=== PATIENT | male | born 1965 | race Two or more races ===

== ENCOUNTER 2019-12-13 09:18 | Inpatient (IN) | payer BC ==
[~2019-12-13] VITALS: Ht 177.8 cm; Wt 60.5 kg
--- NOTE | 2019-12-13 09:18 | NUR ---
PT BIB RA 39 FROM A [facility]ARE [facility] FOR FEVER AND LOW O2S AT 80S ON RA, PT IS AAOX0, NOTED MILD DISTRESS, HOOKED TO O2 AT 3LPM VIA NC AND INSTRUMENT MAKER APPRENTICE, KEPT RESTED AND COMFORTABLE, WILL CONTINUE TO MONITOR.
--- NOTE | 2019-12-13 09:35 | NUR ---
SEEN AND EXAMINED BY .
--- NOTE | 2019-12-13 09:40 | NUR ---
PT IV LINE ESTABLISHED BLOOD DRAWN AND SENT TO LAB.
--- NOTE | 2019-12-13 09:50 | NUR ---
URINE SPECIMEN COLLECTED AND SENT TO LAB.
[2019-12-13 09:54] LABS: BASOPHILS # (AUTO) 0.1 /CMM (0.0-0.2); BASOPHILS % (AUTO) 0.5 % (0.0-2.0); EOSINOPHILS % (AUTO) 2.5 % (0.0-6.0); HEMATOCRIT 30 % (39-51); HEMOGLOBIN 9.2 g/dL (13.5-17.5); LYMPHOCYTES # (AUTO) 1.6 /CMM (0.8-4.8); LYMPHOCYTES % (AUTO) 7.7 % (20.0-44.0); MEAN CORPUSCULAR HGB CONC 31 g/dl (31.0-36.0); MEAN CORPUSCULAR VOLUME 79 fL (80-96); MONOCYTES # (AUTO) 0.9 /CMM (0.1-1.30); MONOCYTES % (AUTO) 4.1 % (2.0-12.0); NEUTROPHILS # (AUTO) 18.1 /CMM (1.8-8.9); NEUTROPHILS % (AUTO) 85.2 % (43.0-81.0); PLATELET COUNT (AUTO) 505 /CMM (150-450); RED BLOOD CELL COUNT(AUTO) 3.82 MIL/uL (4.5-6.0); WHITE BLOOD COUNT (AUTO) 21.2 K/uL (4.3-11.0)
--- NOTE | 2019-12-13 09:54 | NUR ---
SANDWICH AND DRINK CART OPERATOR AT BEDSIDE FOR XRAY.
--- NOTE | 2019-12-13 09:57 | NUR ---
COVID SWAB OBTAINED AND SENT TO LAB.
--- NOTE | 2019-12-13 10:00 | NUR ---
CALLED FOR TELE BED.
[2019-12-13 10:01] LABS: CALCIUM, SERUM 8.7 mg/dL (8.5-10.1); CARBON DIOXIDE 27 mmol/L (21-32); CHLORIDE 96 mmol/L (98-107); CREATININE 0.7 mg/dL (0.6-1.3); GLUCOSE 316 mg/dL (74-106); POTASSIUM 4.1 mmol/L (3.5-5.1); SODIUM SERUM 132 mmol/L (136-145); UREA NITROGEN, BLOOD 13 mg/dL (7-18)
[2019-12-13] MEDS ORDERED: ACETAMINOPHEN 650 MG/20.3 ML UDC ONE (10:01)
[2019-12-13 10:07] LABS: APPEARANCE,URINE Clear (CLEAR); BILIRUBIN,URINE Negative (NEGATIVE); BLOOD, URINE Trace-intact Ery/uL (NEGATIVE); COLOR,URINE Yellow (YELLOW); KETONES,URINE Negative (NEGATIVE); LEUKOCYTE ESTERASE ,URINE Trace (NEGATIVE); NITRITE, URINE Negative (NEGATIVE); PH,URINE 6.5 (5.0-8.0); PROTEIN,URINE 30 mg/dl (NEGATIVE); UGLUCOSE Negative (NEGATIVE)
[2019-12-13 10:13] LABS: BACTERIA,URINE Few /HPF (None Seen); SQUAMOUS EPITHELIAL CELL,UR Few /HPF (None Seen); WBC,URINE 0-2 /HPF (0-3)
[2019-12-13 10:14] LABS: ALANINE AMINOTRANSFERASE 18 U/L (12-78); ALBUMIN 1.7 g/dL (3.4-5.0); ALKALINE PHOSPHATASE 155 U/L (46-116); ASPARTATE AMINOTRANSFERASE 19 U/L (15-37); B-TYPE NATRIURETIC PEPTIDE 686 PG/ML (0-125); BILIRUBIN,DIRECT 0.1 mg/dL (0.0-0.2); BILIRUBIN,TOTAL 0.2 mg/dL (0.2-1.0); TOTAL PROTEIN, SERUM 8.1 g/dL (6.4-8.2)
--- NOTE | 2019-12-13 10:23 | NUR ---
SPOKED TO PT'S DAUGHTER BENIGNOCHARISMA LORIN FOR PT INFO
[2019-12-13] MEDS ORDERED: ACETAMINOPHEN 160 MG/5 ML PO ONE (10:30)
[2019-12-13] MEDS ORDERED: IV NS 0.9% 500 ML BAG IV ONE (11:00)
[2019-12-13] MEDS ORDERED: VANCOMYCIN HCL 1 GM in IV D5W 260 ML IV ONE (11:00)
[2019-12-13] MEDS ORDERED: PIPERACILLIN /TAZOBACTAM 3.375 G in IV D5W 50 ML IV ONE (11:00)
--- NOTE | 2019-12-13 11:14 | NUR ---
GOT BED 105
--- NOTE | 2019-12-13 11:17 | NUR ---
[facility] CALLED ITS DR. NAIK
--- NOTE | 2019-12-13 11:59 | NUR ---
CALLED [facility] PAGED DR BUTTERFIELD
--- NOTE | 2019-12-13 12:04 | NUR ---
DR.SAM AGRCIA AT BEDSIDE FOR EVAL.
[2019-12-13] MEDS ORDERED: NA P133E RC (12:36)
[2019-12-13] MEDS ORDERED: AMIO200T4 GT (12:36)
[2019-12-13] MEDS ORDERED: AMIN887L GT (12:36)
[2019-12-13] MEDS ORDERED: DOCU-141 GT (12:36)
[2019-12-13] MEDS ORDERED: TICA90TA GT (12:36)
[2019-12-13] MEDS ORDERED: NUT.250L18 (12:36)
[2019-12-13] MEDS ORDERED: ATOR40TA GT (12:36)
[2019-12-13] MEDS ORDERED: ACET325T53 GT (12:36)
[2019-12-13] MEDS ORDERED: IPRA3AMP23 IH (12:36)
[2019-12-13] MEDS ORDERED: INSU100I35 SQ (12:36)
[2019-12-13] MEDS ORDERED: INSU100V9 (12:36)
[2019-12-13] MEDS ORDERED: METO50TA16 GT (12:36)
[2019-12-13] MEDS ORDERED: NYST15PO4 TP (12:36)
[2019-12-13] MEDS ORDERED: METO-295 GT (12:36)
[2019-12-13] MEDS ORDERED: LOPE-195 GT (12:36)
[2019-12-13] MEDS ORDERED: BISA10SU11 RC (12:36)
[2019-12-13] MEDS ORDERED: SENN-175 GT (12:36)
[2019-12-13] MEDS ORDERED: FERR325T23 GT (12:36)
[2019-12-13] MEDS ORDERED: ASPI-1498 GT (12:36)
[2019-12-13] MEDS ORDERED: POLY10DR3 OP (12:36)
[2019-12-13] MEDS ORDERED: MAGN400O6 GT (12:36)
[2019-12-13 12:42] LABS: ABG BASE EXCESS 0.6 mmol/L; ABG OXYGEN SATURATION 96.8 % (92.0-98.5); ABG PCO2 33.1 mmHg (35.0-45.0); ABG PH 7.476 (7.350-7.450); ABG PO2 102.4 mmHg (75.0-100.0); AaDO2 115.9 mmHg; COHb 0.3 % (0.5-1.5); MetHb 0.4 % (0.0-1.5); O2Hb 96.1 % (94.0-97.0); SITE, ABG Right Brachial; VENT MODE, BG 4L NASAL CANULA
--- NOTE | 2019-12-13 12:45 | NUR ---
REPORT GIVEN TO ELAN FAITH FOR ADRIANA.
--- NOTE | 2019-12-13 13:15 | NUR ---
RN OPENING NOTES RECEIVED PATIENT FROM ER. PATIENT IS A/O X0, NONVERBAL. PATIENT IS ON 3L NC SATURATING AT 98%. VITAL SIGNS ARE STABLE. TEMP 97.4, BP 111/71, HR 101. PATIENT HAS MULTIPLE WOUNDS PRESENT, WOUNDS CHARTED AND PICTURES TAKEN AND PLACED IN THE CHART. SEIZURE PRECAUTIONS ARE IN PLACE. PATIENT IS NPO. IV STARTED ON RIGHT HAND 20 GAUGE, INTACT, PATENT AND FLUSHED WELL. PATIENT SAFETY IS MAINTAINED, CALL LIGHT WITHIN REACH, WILL CONTINUE TO MONITOR CLOSELY.
--- NOTE | 2019-12-13 14:19 | NUR ---
DR. HERNANDEZ NOTIFIED REGARDDING ADISSION ORDERS.
[2019-12-13] MEDS ORDERED: DEXTROSE 50%-WATER 50 ML DISP.SYRIN IV PRN (14:30)
[2019-12-13] MEDS ORDERED: IPRATROPIUM NEB FS 0.5 MG/2.5 ML AMPUL.NEB NEB PRN (14:30)
[2019-12-13] MEDS ORDERED: ONDANSETRON HCL/PF 4 MG/2 ML VIAL IVP PRN (14:30)
[2019-12-13] MEDS ORDERED: ALBUTEROL FS 2.5 MG/0.5 ML VIAL.NEB NEB PRN (14:30)
[2019-12-13] MEDS ORDERED: GLUCERNA 1.2 1,000 ML BOTTLE NG PRN (14:30)
[2019-12-13] MEDS ORDERED: Z GUARD REMEDY 2 OZ OINT TP PRN (14:30)
[2019-12-13] MEDS ORDERED: ENOXAPARIN SODIUM 40 MG/0.4 ML DISP.SYRIN SQ SCH (15:00)
[2019-12-13] MEDS ORDERED: IPRATROPIUM BROMIDE 14 GM INHALER (or 12.9 GM) IH PRN (15:30)
[2019-12-13] MEDS ORDERED: ALBUTEROL SULFATE INH 18 GM HFA.AER.AD IH PRN (15:30)
[2019-12-13] MEDS: IV NS 0.9% 1,000 ML IV PRN (15:37)
[2019-12-13] MEDS ORDERED: FEE PK DOSING 1 MIN EA MC ONE (15:40)
[2019-12-13 16:00] VITALS: BP 100/61
[2019-12-13] MEDS: TICAGRELOR 90 MG TABLET PO SCH (16:18)
--- NOTE | 2019-12-13 17:30 | NUR ---
RN NOTE PATIENT BLOOD SUGAR IS 311, SPOKE WITH CHARGE NURSE OK TO GIVE INSULIN EVEN THOUGH THE PATIENT IS NPO. ADMINISTERED INSULIN ORDERED. WILL MONITOR CLOSELY.
[2019-12-13] MEDS: PIPERACILLIN /TAZOBACTAM 3.375 G in IV D5W 50 ML IV SCH ×2 (17:35→23:46)
[2019-12-13] MEDS: BLOOD SUGAR DIAGNOSTIC 1 EACH STRIP IN SCH ×2 (17:37→23:45)
[2019-12-13] MEDS: INSULIN REGULAR, HUMAN 100 UNIT/ML 3 ML VIAL SQ PRN (18:02)
--- NOTE | 2019-12-13 19:32 | NUR ---
RN CLOSING NOTES NO ACUTE CHANGES TO PATIENT CONDITION DURING MY SHIFT. ALL PATIENT NEEDS MET. SAFETY WAS MAINTAINED, CALL LIGHT WITHIN REACH, ENDORSED TO PM NURSE FOR CONTINUITY OF CARE.
--- NOTE | 2019-12-13 19:45 | NUR ---
ASSORTER LAUNDRY OPENING NOTES: RECEIVED PT A/OX0 BED RESTING COMFORTABLY. PATIENT IN NO S/SX OF ACUTE DISTRESS AT THIS TIME. NO SOB NOTED. PATIENT'S BREATHING IS EVEN AND UNLABORED. PATIENT IS ON 3 L OF OXYGEN VIA NC; TOLERATING WELL. PATIENT ON TELE MONITORING READING HR IS @103. NOTED IV SITE ON R HAND ; GAUGE 20; PATENT IN INTACT,NO S/S OF INFECTION OR INFILTRATION. DEVLIN CATH IN PLACE, MODERATE OUTPUT NOTED. SAFETY MEASURES HAVE BEEN PROVIDED AND IMPLEMENTED. PATIENT BED ALARM IS ON. HEAD OF BED ELEVATED. BED IS LOCKED, IN LOWEST POSITION AND SIDE RAILS UP. CALL LIGHT WITHIN REACH OF THE PATIENT. WILL CONTINUE TO MONITOR AND REASSESS FOR ANY CHANGES.
[2019-12-13 20:00] VITALS: BP 106/65
[2019-12-13] MEDS: NYSTATIN TOP POWDER 15 GM BOTTLE TP SCH (21:22)
[2019-12-13] MEDS: ATORVASTATIN 40 MG TABLET GT SCH (21:49)
[2019-12-13] MEDS: VANCOMYCIN 1 GM in IV D5W 250 ML IV SCH (22:16)
[2019-12-14] VITALS (8 sets, daily range): BP systolic 107–115; BP diastolic 61–71
[2019-12-14] MEDS: INSULIN REGULAR, HUMAN 100 UNIT/ML 3 ML VIAL SQ PRN ×4 (00:02→17:10)
[2019-12-14] MEDS: PIPERACILLIN /TAZOBACTAM 3.375 G in IV D5W 50 ML IV SCH ×3 (05:06→18:23)
[2019-12-14] MEDS: BLOOD SUGAR DIAGNOSTIC 1 EACH STRIP IN SCH ×3 (05:27→17:08)
[2019-12-14 06:13] LABS: BASOPHILS % (AUTO) 0.2 % (0.0-2.0); EOSINOPHILS % (AUTO) 3.9 % (0.0-6.0); HEMATOCRIT 26 % (39-51); HEMOGLOBIN 8.3 g/dL (13.5-17.5); LYMPHOCYTES # (AUTO) 1.4 /CMM (0.8-4.8); LYMPHOCYTES % (AUTO) 7.9 % (20.0-44.0); MEAN CORPUSCULAR HGB CONC 31 g/dl (31.0-36.0); MEAN CORPUSCULAR VOLUME 78 fL (80-96); MONOCYTES # (AUTO) 1.1 /CMM (0.1-1.30); MONOCYTES % (AUTO) 5.8 % (2.0-12.0); NEUTROPHILS # (AUTO) 14.8 /CMM (1.8-8.9); NEUTROPHILS % (AUTO) 82.2 % (43.0-81.0); PLATELET COUNT (AUTO) 463 /CMM (150-450); RED BLOOD CELL COUNT(AUTO) 3.39 MIL/uL (4.5-6.0)
[2019-12-14 06:44] LABS: CALCIUM, SERUM 8.2 mg/dL (8.5-10.1); CREATININE 0.5 mg/dL (0.6-1.3); MAGNESIUM 1.6 mg/dL (1.8-2.4); PHOSPHORUS 3.3 mg/dL (2.5-4.9); POTASSIUM 3.7 mmol/L (3.5-5.1)
[2019-12-14 06:46] LABS: THYROID STIMULATING HORMONE 2.13 uIU/mL (0.358-3.74)
--- NOTE | 2019-12-14 06:53 | NUR ---
CARTOGRAPHIC DESIGNER - CLOSING NOTES PATIENT IN BED RESTING COMFORTABLY. PATIENT IN NO ACUTE DISTRESS. NO SOB NOTED, PT BREATHING IS EVEN AND UNLABORED. PT BREATHING ON OXYGEN 3L VIA NC SATURATING > 95% SP02. PATIENT ON TELE MONITORING READING SINUS TACHY HR IS @105. PATIENT IS CLEAN , DRY AND COMFORTABLE THROUGHOUT THE SHIFT. NEEDS AND CONCERNS ADDRESSED. SAFETY MEASURES INPLACED. PATIENT BED IS LOCKED AND IN LOWEST POSITION. SIDE RAILS UP. CALL LIGHT WITHIN REACH OF THE PATIENT. WILL ENDORSE TO AM SHIFT FOR ADRIANA.
--- NOTE | 2019-12-14 07:29 | NUR ---
RN OPENING NOTES RECEIVED PATIENT SLEEPING IN BED COMFORTABLY, NO S/SX OF DISTRESS. PT IS NON-VERBAL, AOX0, AND BEDBOUND. HE IS ON 3L OF OXYGEN VIA NC, TOLERATING WELL. TELE MONITOR SHOWING SR ST. DEVLIN CATH IS PATENT AND INTACT, DRAINING CLOUDY YELLOW URINE BY GRAVITY. MULTIPLE SKIN ISSUES PRESENT, WOUND CONSULT IS PENDING. GTUBE IS CLAMPED. IV SITE ON R HAND 20 G IS PATENT AND INTACT, INFUSING NS AT 100 ML/HR. SAFETY MEASURES HAVE BEEN IMPLEMENTED, CALL LIGHT IS WITHIN REACH, BED IS IN LOWEST AND LOCKED POSITION, SIDE RAILS UP X2, WILL CONTINUE TO MONITOR FOR ANY CHANGES.
[2019-12-14] MEDS: FERROUS SULFATE (325 MG) 325 MG/TAB TABLET GT SCH (08:13)
[2019-12-14] MEDS: AMIODARONE HCL 200 MG TABLET GT SCH (08:15)
[2019-12-14] MEDS: TICAGRELOR 90 MG TABLET PO SCH ×2 (08:15→17:08)
[2019-12-14] MEDS: PANTOPRAZOLE 40 MG VIAL IV SCH (08:15)
[2019-12-14] MEDS: ASPIRIN EC 81 MG TABLET.DR PO SCH (08:15)
[2019-12-14] MEDS: NYSTATIN TOP POWDER 15 GM BOTTLE TP SCH ×2 (08:16→21:27)
--- NOTE | 2019-12-14 08:35 | NUR ---
WOUND CARE CONSULT: REVIEWED CHART, NURSING DOCUMENTATION AND ADMISSION PHOTOS WHICH SHOW MULTIPLE WOUNDS INCLUDING UNSTAGEABLE SACRAL AND RT ELBOW WOUNDS, BILATERAL ANKLE WOUNDS, INTACT DEEP TISSUE INJURY TO BACK, RT EAR INTACT DTI/DISCOLORATION, SCARS TO BACK AND LEFT LATERAL KNEE AND RASHES TO AXILLARY AND GROIN/PERINEAL AREAS, ALL PRESENT ON ADMISSION. RECOMMEND SURGICAL AND DPM CONSULTS. DR GREER SHANNON AND DR GARCIA NOTIFIED OF CONSULT REQUESTS. PT ON HAMMOND ISOFLEX LOW AIRLOSS BED. RECOMMENDATIONS MADE FOR SKIN PROTECTION AND WOUND CARE. DISCUSSED WITH NURSING STAFF. DEFER TO PODIATRY FOR LOWER EXTREMITIES. MD IN AGREEMENT WITH PLAN OF CARE. WILL SEE PRN.
--- NOTE | 2019-12-14 09:19 | NUR ---
DR. BUTTERFIELD NOTIFIED PATIENT COVID NEGATIVE BUT HAS FEVER OVERNIGHT PER MD HE WILL REVIEW CASE AND SEE PATIENT FIRST PRIOR TO SENDING TO CLEAN FLOOR. NURSING SUP MADE AWARE.
[2019-12-14] MEDS: DAKINS QUARTER STRENGTH (0.125%) 480 ML BOTTLE TOP SCH (09:58)
[2019-12-14] MEDS: CLOTRIMAZOLE 1% 15 GM TUBE TP SCH ×2 (09:58→17:08)
[2019-12-14] MEDS: Magnesium 1GM/D5W 100ML PREMIX 100 ML IV SCH ×2 (10:28→11:27)
[2019-12-14] MEDS: VANCOMYCIN 1 GM in IV D5W 250 ML IV SCH ×2 (11:32→17:08)
[2019-12-14] MEDS: GLUCERNA 1.2 1,000 ML BOTTLE GT PRN (11:35)
[2019-12-14] MEDS ORDERED: SILVER NITRATE APPLICATOR 1 EA BOX TP ONE (13:30)
[2019-12-14] MEDS ORDERED: LIDOCAINE 2%-EPI 1:100,000 30 ML VIAL TP ONE (13:30)
--- NOTE | 2019-12-14 14:04 | NUR ---
DR. BUTTERFIELD NOTIFIED PT. POSITIVE MRSA BLOOD NO NEW ORDERS NURSE PATRIA MADE AWARE.
--- NOTE | 2019-12-14 14:07 | NUR ---
PATIENT TRANSFERRED FROM [place] Received report from Davon ANSARI, patient is A/O x0, on-verbal, moans and responds to voice and touch. BP 115/63 HR 99 O2 sat 98% on RA T 98.8 RR 18. IV line in the right hand #20g is clean and patent, flushing well. G-tube noted running glucerna @ 60ml/hour. Feldman catheter noted with clear urine output. Received call from LUDMILA Renae RN in [place], patient is positive MRSA of the blood, made aware by LUDMILA, will notify MS charge manager. Bed is in lowest postiion, side rails x3 in upright position, fall, safety and aspiration precautions enforced. Will continue with plan of care.
--- NOTE | 2019-12-14 14:08 | NUR ---
RN NOTES PATIENT TRANSFERRED TO ROOM 311-1, TRANSFER REPORT GIVEN TO PATRIA ANSARI FOR ADRIANA
--- NOTE | 2019-12-14 15:08 | NUR ---
RN NOTE MD notified that patient is on Lovenox and Brillinta. DC Lovenox per Dr. Bran.
--- NOTE | 2019-12-14 18:00 | NUR ---
RN CLOSING NOTE Patient is resting in bed, A/O x0, non-verbal, opens eyes and makes incomprehensible sounds to name and touch. Patient is in no acute distress, saturating 98% on 3L NC. G-tube is clear and patent with 0ml residual, running Glucerna 1.2 @ 60ml/hour. Feldman cather noted with clear urine output with total of 600cc out today. IV line in the right hand #20g is clean and intact running Vancomycin at 250ml/hr. Patient turned and reposition [id number], extremeties offloaded and on special mattress. Bed is in lowest position, side rails x3 in upright position, fall, safety and aspiration precautions enforced. Will endorse to hoisting engineer pile driving.
--- NOTE | 2019-12-14 19:15 | NUR ---
RN OPENING NOTES Received patient awake on bed, non-verbal. On O2 inhalation via NC @ 3LPM, saturating well, no SOB/respiratory distress noted. On GTF infusing well, no abdominal distention or vomiting noted. On FC indwelling well with clear yellow urine output noted. On fall and aspiration precautions. Will continue to monitor accordingly.
[2019-12-14] MEDS: ATORVASTATIN 40 MG TABLET GT SCH (21:25)
[2019-12-14] MEDS: MUPIROCIN OINT 2% 22 GM TUBE SCH (21:35)
[2019-12-15] MEDS: BLOOD SUGAR DIAGNOSTIC 1 EACH STRIP IN SCH ×4 (00:58→17:17)
[2019-12-15] MEDS: PIPERACILLIN /TAZOBACTAM 3.375 G in IV D5W 50 ML IV SCH ×3 (00:59→12:20)
[2019-12-15] MEDS: IV NS 0.9% 1,000 ML IV PRN (01:12)
[2019-12-15] MEDS: INSULIN REGULAR, HUMAN 100 UNIT/ML 3 ML VIAL SQ PRN ×4 (01:28→17:16)
[2019-12-15] MEDS: VANCOMYCIN 1 GM in IV D5W 250 ML IV SCH ×2 (01:40→09:46)
[2019-12-15] MEDS: GLUCERNA 1.2 1,000 ML BOTTLE GT PRN (06:49)
[2019-12-15 07:08] LABS: BASOPHILS % (AUTO) 0.1 % (0.0-2.0); EOSINOPHILS % (AUTO) 5.7 % (0.0-6.0); HEMATOCRIT 26 % (39-51); HEMOGLOBIN 8.4 g/dL (13.5-17.5); LYMPHOCYTES # (AUTO) 1.7 /CMM (0.8-4.8); LYMPHOCYTES % (AUTO) 14.7 % (20.0-44.0); MEAN CORPUSCULAR HGB CONC 32 g/dl (31.0-36.0); MEAN CORPUSCULAR VOLUME 78 fL (80-96); MONOCYTES # (AUTO) 0.9 /CMM (0.1-1.30); MONOCYTES % (AUTO) 7.8 % (2.0-12.0); NEUTROPHILS # (AUTO) 8.1 /CMM (1.8-8.9); NEUTROPHILS % (AUTO) 71.7 % (43.0-81.0); PLATELET COUNT (AUTO) 479 /CMM (150-450); RED BLOOD CELL COUNT(AUTO) 3.41 MIL/uL (4.5-6.0); WHITE BLOOD COUNT (AUTO) 11.3 K/uL (4.3-11.0)
[2019-12-15 07:25] LABS: CALCIUM, SERUM 8.3 mg/dL (8.5-10.1); CREATININE 0.5 mg/dL (0.6-1.3); MAGNESIUM 1.8 mg/dL (1.8-2.4); PHOSPHORUS 3.1 mg/dL (2.5-4.9); POTASSIUM 3.8 mmol/L (3.5-5.1)
--- NOTE | 2019-12-15 07:31 | NUR ---
RN CLOSING NOTES Patient asleep on bed. On O2 inhalation, no nee unusualities noted. All nursing needs attended. Due meds given as ordered. Kept on bed clean, dry and comfortable. On aspiration precautions as all times. ENdorsed.
[2019-12-15 08:00] VITALS: BP 98/51
--- NOTE | 2019-12-15 08:00 | NUR ---
RN OPENING NOTES Received patient awake on bed, non-verbal. On O2 inhalation via NC @ 3LPM, saturating well, no SOB/respiratory distress noted. On GTF infusing well,tolerating well with no residuals noted, HOB elevated with aspiration precautions and no abdominal distention or vomiting noted. On FC indwelling well with clear yellow urine output noted. On fall and aspiration precautions. Will continue to monitor accordingly.
[2019-12-15] MEDS: TICAGRELOR 90 MG TABLET PO SCH ×2 (09:16→18:46)
[2019-12-15] MEDS: FERROUS SULFATE (325 MG) 325 MG/TAB TABLET GT SCH (09:27)
[2019-12-15] MEDS: PANTOPRAZOLE 40 MG VIAL IV SCH (09:28)
[2019-12-15] MEDS: AMIODARONE HCL 200 MG TABLET GT SCH (09:28)
[2019-12-15] MEDS: CLOTRIMAZOLE 1% 15 GM TUBE TP SCH ×2 (09:29→18:51)
[2019-12-15] MEDS: NYSTATIN TOP POWDER 15 GM BOTTLE TP SCH ×2 (09:29→20:14)
[2019-12-15] MEDS: DAKINS QUARTER STRENGTH (0.125%) 480 ML BOTTLE TOP SCH (09:29)
[2019-12-15] MEDS: ASPIRIN EC 81 MG TABLET.DR PO SCH (09:31)
[2019-12-15] MEDS: MUPIROCIN OINT 2% 22 GM TUBE SCH ×2 (10:03→20:14)
[2019-12-15 13:20] LABS: URINE SODIUM, RANDOM 36 mmol/l (40-220)
[2019-12-15 14:40] LABS: OSMOLALITY,URINE 320 mOS/kg (340-1090)
[2019-12-15 16:00] VITALS: BP 98/65
--- NOTE | 2019-12-15 16:00 | NUR ---
DANI GREGORY DID THE SERIAL DEBRIDEMENT ON PT'S SACRAL WOUND.SENT THE SACRAL TISSUES DEBRIDED TO PATHOLOGY AND SACRAL WOUND C/S TO THE LAB. PT TOLERATED WELL. WOUND DRESSING DONE.WILL MONITOR FOR ANY BLEEDING.
[2019-12-15] MEDS ORDERED: SILVER NITRATE APPLICATOR 1 EA BOX TP ONE (16:30)
--- NOTE | 2019-12-15 16:30 | NUR ---
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
--- NOTE | 2019-12-15 18:00 | NUR ---
NO BLEEDING ON THE SACRAL AREA WILL TURNED EVERY TWO HRS.ENDORSED TO LEAD PASTOR TO MONITOR.
--- NOTE | 2019-12-15 19:00 | NUR ---
RN OPENING NOTES Received patient asleep on Walden's position on bed. On O2 inhalation via NC @ 3LPM saturating well, no SOB/respiratory distress noted. With GTF infusing well, no abdominal No s/sx of distress/discomfort noted. Kept HOB elevated at all times, on aspiration precautions. Will continue to monitor accordingly.
[2019-12-15] MEDS: COLISTIMETHATE SODIUM 75 MG in IV NS 0.9% 50 ML IV SCH (19:14)
[2019-12-15 20:00] VITALS: BP 109/61
[2019-12-15] MEDS: LINEZOLID 600 MG TABLET PO SCH (20:11)
[2019-12-15 20:37] VITALS: BP 109/61
[2019-12-15] MEDS: ATORVASTATIN 40 MG TABLET GT SCH (21:37)
[2019-12-16] MEDS: BLOOD SUGAR DIAGNOSTIC 1 EACH STRIP IN SCH ×5 (00:17→23:14)
[2019-12-16] MEDS: INSULIN REGULAR, HUMAN 100 UNIT/ML 3 ML VIAL SQ PRN ×5 (00:19→23:17)
[2019-12-16] MEDS: GLUCERNA 1.2 1,000 ML BOTTLE GT PRN ×2 (02:08→22:02)
[2019-12-16] MEDS: COLISTIMETHATE SODIUM 75 MG in IV NS 0.9% 50 ML IV SCH ×2 (05:55→20:01)
[2019-12-16 06:33] LABS: BASOPHILS % (AUTO) 0.3 % (0.0-2.0); EOSINOPHILS % (AUTO) 5.4 % (0.0-6.0); HEMATOCRIT 25 % (39-51); HEMOGLOBIN 8.1 g/dL (13.5-17.5); LYMPHOCYTES # (AUTO) 1.4 /CMM (0.8-4.8); MEAN CORPUSCULAR HGB CONC 32 g/dl (31.0-36.0); MEAN CORPUSCULAR VOLUME 78 fL (80-96); NEUTROPHILS # (AUTO) 9.6 /CMM (1.8-8.9); NEUTROPHILS % (AUTO) 75.3 % (43.0-81.0); PLATELET COUNT (AUTO) 514 /CMM (150-450); RED BLOOD CELL COUNT(AUTO) 3.27 MIL/uL (4.5-6.0); WHITE BLOOD COUNT (AUTO) 12.8 K/uL (4.3-11.0)
--- NOTE | 2019-12-16 06:39 | NUR ---
RN CLOSING NOTES Patient asleep, easily awaken. On O2 inhalation va NC @ 3LPM, saturating well, no SOB/respiratory distress noted. Patient non-verbal, no s.sx of distress/discomfort noted at this time. Wound care done as ordered, S/P bedside sacral wound debridement. Turned and repositioned every 2 hrs per protocol. On GTF, infusing well, tolerated well. Afebrile the whole shift, no unusualities noted. Kept on bed clean, dry and comfortable. Endorsed.
[2019-12-16 06:50] LABS: CALCIUM, SERUM 8.5 mg/dL (8.5-10.1); CREATININE 0.7 mg/dL (0.6-1.3); POTASSIUM 4.1 mmol/L (3.5-5.1)
[2019-12-16 07:06] LABS: THYROID STIMULATING HORMONE 1.958 uIU/mL (0.358-3.74); URIC ACID 1.6 mg/dL (2.6-7.2)
[2019-12-16 07:08] LABS: MAGNESIUM 1.7 mg/dL (1.8-2.4); PHOSPHORUS 3.9 mg/dL (2.5-4.9)
[2019-12-16 08:00] VITALS: BP 110/62
--- NOTE | 2019-12-16 08:39 | NUR ---
MS/RN OPENING NOTE RECEIVED PATIENT ASLEEP IN BED IN SEMI FOWLERS POSITION. PATIENT ON 02 INHALATION VIA N/C AT 3 LPM SATURATING WELL. NO SOB, RESPIRATORY DISTRESS NOTED. G-TUBE INFUSING AND INTACT. NO SIGNS OF PAIN AT THIS TIME. ENDORSED TO KEEP HEAD OF BED ELEVATED AT ALL TIMES, ASPIRATION PRECAUTIONS. SAFETY MEASURES IN PLACE, BED IN LOW POSITION AND ALARM ON. WILL CONTINUE TO MONITOR ACCORDINGLY THROUGHOUT SHIFT.
[2019-12-16] MEDS: ASPIRIN EC 81 MG TABLET.DR PO SCH (08:48)
[2019-12-16] MEDS: AMIODARONE HCL 200 MG TABLET GT SCH (08:48)
[2019-12-16] MEDS: TICAGRELOR 90 MG TABLET PO SCH ×2 (08:48→17:53)
[2019-12-16] MEDS: PANTOPRAZOLE 40 MG VIAL IV SCH (08:48)
[2019-12-16] MEDS: FERROUS SULFATE (325 MG) 325 MG/TAB TABLET GT SCH (08:48)
[2019-12-16] MEDS: LINEZOLID 600 MG TABLET PO SCH ×2 (08:50→21:41)
[2019-12-16] MEDS: CLOTRIMAZOLE 1% 15 GM TUBE TP SCH ×2 (08:52→17:54)
[2019-12-16] MEDS: MUPIROCIN OINT 2% 22 GM TUBE SCH ×2 (08:52→20:56)
[2019-12-16] MEDS: NYSTATIN TOP POWDER 15 GM BOTTLE TP SCH ×2 (08:53→20:56)
[2019-12-16] MEDS: DAKINS QUARTER STRENGTH (0.125%) 480 ML BOTTLE TOP SCH (08:53)
[2019-12-16] MEDS: ACETAMINOPHEN 325 MG TABLET PO PRN (09:02)
[2019-12-16] MEDS: Magnesium 1GM/D5W 100ML PREMIX 100 ML IV SCH ×2 (09:52→11:02)
[2019-12-16 16:00] VITALS: BP 111/61
[2019-12-16] MEDS: PROSOURCE / PROSTAT (PYXIS) 30 ML UDC GT SCH (17:52)
--- NOTE | 2019-12-16 18:55 | NUR ---
MS/RN CLOSING NOTES Patient resting in bed, easily awaken. On O2 via NC @ 3LPM, saturating WNL, no SOB and no respiratory distress noted. Patient non-verbal, no signs of acute distress or discomfort noted at this time. Wound care done as ordered, S/P bedside sacral wound debridement. Turned and repositioned every 2 hrs per protocol. On GTF, infusing well, tolerated well. Afebrile throughout shift. Kept on bed clean, dry and comfortable. One stool sample collected. Endorsed to PM shift.
--- NOTE | 2019-12-16 19:10 | NUR ---
RN medsurg opening notes Received Pt from morning nurse. Pt is resting in bed comfortably and non verbal. Respiration is normal in 3 L NC. No SOB. No S/S of distress noted. IV sites at R hand# 20 is clean, intact and flush without resistance. Gtube feeding is intact, patent and infusing well glucerna 1.2 at 60 ml/hr. Feldman cath is clean, intact and draining yellow urine. HOB elevated all the time. Safety precautions is maintained. Bed at low position, brakes locked, side rails upX3 and call light is within reach. Will continue to monitor.
[2019-12-16 20:00] VITALS: BP 123/76
[2019-12-16 20:08] VITALS: BP 123/76
[2019-12-16] MEDS: ATORVASTATIN 40 MG TABLET GT SCH (21:42)
[2019-12-17] MEDS: COLISTIMETHATE SODIUM 75 MG in IV NS 0.9% 50 ML IV SCH ×2 (05:00→17:02)
[2019-12-17] MEDS: BLOOD SUGAR DIAGNOSTIC 1 EACH STRIP IN SCH ×4 (05:23→23:21)
[2019-12-17] MEDS: INSULIN REGULAR, HUMAN 100 UNIT/ML 3 ML VIAL SQ PRN ×3 (05:28→23:23)
[2019-12-17 06:37] LABS: OCCULT BLOOD STOOL NEGATIVE (NEGATIVE)
--- NOTE | 2019-12-17 06:40 | NUR ---
RN medsurg closing notes Pt is resting in bed comfortably and non verbal. Respiration is normal in 3 L NC. No SOB. No S/S of distress noted. IV sites at R hand# 20 is clean, intact and SL. VS is stable. Afebrile. Routine meds were given as ordered. Gtube feeding is intact, patent and infusing well glucerna 1.2 at 60 ml/hr. Feldman cath is clean, intact and draining yellow urine 1400 ml. HOB elevated all the time. Kept Pt clean, dry and comfortable. All needs met and attended. Safety precautions is maintained. Bed at low position, brakes locked, side rails upX3 and call light is within reach. Will endorse to morning nurse for ADRIANA.
[2019-12-17 06:42] LABS: BASOPHILS % (AUTO) 0.3 % (0.0-2.0); EOSINOPHILS % (AUTO) 11.6 % (0.0-6.0); HEMATOCRIT 30 % (39-51); HEMOGLOBIN 9.1 g/dL (13.5-17.5); LYMPHOCYTES # (AUTO) 2.1 /CMM (0.8-4.8); MEAN CORPUSCULAR HGB CONC 31 g/dl (31.0-36.0); MEAN CORPUSCULAR VOLUME 78 fL (80-96); MONOCYTES # (AUTO) 1.1 /CMM (0.1-1.30); MONOCYTES % (AUTO) 7.8 % (2.0-12.0); NEUTROPHILS % (AUTO) 65.3 % (43.0-81.0); PLATELET COUNT (AUTO) 529 /CMM (150-450); RED BLOOD CELL COUNT(AUTO) 3.81 MIL/uL (4.5-6.0); WHITE BLOOD COUNT (AUTO) 13.7 K/uL (4.3-11.0)
[2019-12-17 06:52] LABS: CALCIUM, SERUM 8.6 mg/dL (8.5-10.1); CREATININE 0.5 mg/dL (0.6-1.3); MAGNESIUM 1.9 mg/dL (1.8-2.4); POTASSIUM 4.8 mmol/L (3.5-5.1)
[2019-12-17 06:57] LABS: FERRITIN 252 ng/mL (8-388)
[2019-12-17 07:06] LABS: IRON, SERUM 18 ug/dl (50-175); TOTAL IRON BINDING CAPACITY 189 ug/dl (250-450)
[2019-12-17 08:00] VITALS: BP 103/59
[2019-12-17] MEDS: FERROUS SULFATE (325 MG) 325 MG/TAB TABLET GT SCH (09:36)
[2019-12-17] MEDS: MULTIVIT W/MINERALS 1 TAB TABLET GT SCH (09:36)
[2019-12-17] MEDS: PANTOPRAZOLE 40 MG VIAL IV SCH (09:37)
[2019-12-17] MEDS: ASPIRIN EC 81 MG TABLET.DR PO SCH (09:37)
[2019-12-17] MEDS: AMIODARONE HCL 200 MG TABLET GT SCH (09:38)
[2019-12-17] MEDS: LINEZOLID 600 MG TABLET PO SCH ×2 (09:46→21:02)
[2019-12-17] MEDS: PROSOURCE / PROSTAT (PYXIS) 30 ML UDC GT SCH ×3 (09:46→16:54)
[2019-12-17] MEDS: DAKINS QUARTER STRENGTH (0.125%) 480 ML BOTTLE TOP SCH (09:47)
[2019-12-17] MEDS: CLOTRIMAZOLE 1% 15 GM TUBE TP SCH ×2 (09:47→17:03)
[2019-12-17] MEDS: MUPIROCIN OINT 2% 22 GM TUBE SCH ×2 (09:47→21:03)
[2019-12-17] MEDS: NYSTATIN TOP POWDER 15 GM BOTTLE TP SCH ×2 (09:47→21:06)
[2019-12-17] MEDS: TICAGRELOR 90 MG TABLET PO SCH ×2 (09:50→16:54)
--- NOTE | 2019-12-17 10:00 | NUR ---
MS RN NOTE TX RENDERED LUISA WELL.
[2019-12-17 16:00] VITALS: BP 99/48
--- NOTE | 2019-12-17 19:35 | NUR ---
MS RN NOTES PATIENT RECEIVED IN BED RESTING. PATIENT IS NON-VERBAL, RESPONSIVE WITH TACTILE STIMULI, AND OPENS AND CLOSES EYES. PATIENT ON NASAL CANNULA 3L, WITH NO SIGNS OF RESPIRATORY DISTRESS, WITH EVEN NON-LABORED BREATHING. IV ACCESS INTACT AND PATENT. G-TUBE IN PLACE AND INTACT, INFUSING GLUCERNA AT 60ml/hr. DEVLIN CATHETER INTACT AND IN PLACE. SAFETY PRECAUTIONS IN PLACE WITH BED ALARM ON, BED IN THE LOWEST POSITION, BED LOCKED, HEAD OF THE BED IN SEMI-FOWLERS POSITION, BILATERAL SIDE RAILS UP, AND CALL LIGHT WITHIN EASY REACH OF THE PATIENT. WILL CONTINUE TO MONITOR PATIENT.
--- NOTE | 2019-12-17 19:36 | NUR ---
MS RN NOTES PATENT RESTING COMFORTABLY IN BED. HOB ELEVATED. ON 02 AT 3 L/MIN VIA NC. NO S/S OF RESPIRATORY DISTRESS. HOB ELEVATED. RESPONSIVE TO VERBAL AND TACTILE STIMULI. DENIES ANY C/O PAIN NOR DISCOMFORT AT THIS TIME. GT INTACT AND PATENT LUISA GLUCERNA 1.2 AT 60ML/HR. DEVLIN CATHETER INTACT AND PATENT DRAINING YELLOW COLORED URINE VIA BEDSIDE. RIGHT HAND # 20 SL INTACT AND PATENT. BED IN LOWEST POSITION, LOCKED. BED ALARM ON. LISA SIDERAILS UP X2. IN NO APPARENT DISTRESS.
[2019-12-17 20:00] VITALS: BP 102/60
[2019-12-17 20:17] VITALS: BP 102/60
[2019-12-17] MEDS: ATORVASTATIN 40 MG TABLET GT SCH (21:06)
--- NOTE | 2019-12-17 23:21 | NUR ---
MS RN NOTES PATIENT'S BLOOD SUGAR 305, PER SLIDING SCALE 12 UNITS OF INSULIN GIVEN. PATIENT HAS G-TUBE FEEDING, GLUCERNA 1.2 AT 60ml/hr. WILL CONTINUE TO MONITOR PATIENT.
[2019-12-17] MEDS: GLUCERNA 1.2 1,000 ML BOTTLE GT PRN (23:36)
[2019-12-18] MEDS: COLISTIMETHATE SODIUM 75 MG in IV NS 0.9% 50 ML IV SCH ×2 (05:01→17:09)
[2019-12-18] MEDS: BLOOD SUGAR DIAGNOSTIC 1 EACH STRIP IN SCH ×4 (05:26→23:21)
[2019-12-18] MEDS: INSULIN REGULAR, HUMAN 100 UNIT/ML 3 ML VIAL SQ PRN ×4 (05:32→23:23)
--- NOTE | 2019-12-18 05:32 | NUR ---
MS RN NOTES PATIENT'S BLOOD SUGAR 276, PER SLIDING SCALE ADMINISTERED 9 UNITS INSULIN. PATIENT ON G-TUBE FEEDING, AT 60 ml/hr. WILL CONTINUE TO MONITOR PATIENT.
[2019-12-18 06:26] LABS: BASOPHILS % (AUTO) 0.4 % (0.0-2.0); HEMATOCRIT 29 % (39-51); LYMPHOCYTES # (AUTO) 1.8 /CMM (0.8-4.8); LYMPHOCYTES % (AUTO) 14.2 % (20.0-44.0); MEAN CORPUSCULAR HGB CONC 31 g/dl (31.0-36.0); MEAN CORPUSCULAR VOLUME 77 fL (80-96); MONOCYTES # (AUTO) 0.9 /CMM (0.1-1.30); MONOCYTES % (AUTO) 7.4 % (2.0-12.0); NEUTROPHILS # (AUTO) 8.4 /CMM (1.8-8.9); PLATELET COUNT (AUTO) 565 /CMM (150-450); RED BLOOD CELL COUNT(AUTO) 3.77 MIL/uL (4.5-6.0); WHITE BLOOD COUNT (AUTO) 12.5 K/uL (4.3-11.0)
--- NOTE | 2019-12-18 06:28 | NUR ---
MS RN NOTES PATIENT IN BED RESTING COMFORTABLY. PATIENT NON-VERBAL, RESPONSIVE WITH LIGHT TOUCH. ON NASAL CANNULA 3L, WITH EVEN NON-LABORED BREATHING, AND NO SOB NOTED. IV ACCESS INTACT AND PATENT. PATIENT G-TUBE SITE CLEAN AND INTACT. DEVLIN CATHETER IN PLACE WITH YELLOW URINE OUTPUT. MET ALL OF PATIENT'S NEEDS. PROVIDED COMFORT MEASURES TO PATIENT, NO PAIN OR DISCOMFORT AT THIS TIME. SAFETY PRECAUTIONS IMPLEMENTED WITH BED IN THE LOWEST POSITION, BED LOCKED, BED ALARM ON, BILATERAL SIDE RAILS UP AND CALL LIGHT WITHIN EASY REACH OF PATIENT. WILL ENDORSE PLAN OF CARE TO UPCOMING DAYSHIFT NURSE.
[2019-12-18 06:39] LABS: CALCIUM, SERUM 8.6 mg/dL (8.5-10.1); CREATININE 0.7 mg/dL (0.6-1.3); POTASSIUM 4.7 mmol/L (3.5-5.1)
[2019-12-18 08:00] VITALS: BP 123/83
[2019-12-18] MEDS: PANTOPRAZOLE 40 MG VIAL IV SCH (09:28)
[2019-12-18] MEDS: TICAGRELOR 90 MG TABLET PO SCH ×2 (09:28→17:11)
[2019-12-18] MEDS: MULTIVIT W/MINERALS 1 TAB TABLET GT SCH (09:28)
[2019-12-18] MEDS: FERROUS SULFATE (325 MG) 325 MG/TAB TABLET GT SCH (09:28)
[2019-12-18] MEDS: AMIODARONE HCL 200 MG TABLET GT SCH (09:29)
[2019-12-18] MEDS: ASPIRIN EC 81 MG TABLET.DR PO SCH (09:30)
[2019-12-18] MEDS: PROSOURCE / PROSTAT (PYXIS) 30 ML UDC GT SCH ×3 (09:30→17:07)
[2019-12-18] MEDS: MUPIROCIN OINT 2% 22 GM TUBE SCH ×2 (09:35→21:15)
[2019-12-18] MEDS: DAKINS QUARTER STRENGTH (0.125%) 480 ML BOTTLE TOP SCH (09:35)
[2019-12-18] MEDS: CLOTRIMAZOLE 1% 15 GM TUBE TP SCH ×2 (09:36→17:13)
[2019-12-18] MEDS: NYSTATIN TOP POWDER 15 GM BOTTLE TP SCH ×2 (09:37→21:15)
[2019-12-18] MEDS: LINEZOLID 600 MG TABLET PO SCH ×2 (10:00→21:14)
--- NOTE | 2019-12-18 10:00 | NUR ---
MS RN NOTES CALLED AND SPOKE TO DTR FAUSTO , PER DTR SHE HAD DISCUSSED HOSPICE WITH FAMILY AND WANTS PATIENT TO REMAIN FULL CODE. INFORMED DANI VANG.
[2019-12-18 16:00] VITALS: BP 110/65
[2019-12-18] MEDS: GLUCERNA 1.2 1,000 ML BOTTLE GT PRN (17:13)
--- NOTE | 2019-12-18 19:42 | NUR ---
MS RN NOTES PATENT RESTING COMFORTABLY IN BED. HOB ELEVATED. NO S/S OF RESPIRATORY DISTRESS. ON 02 AT 3 L/MIN VIA NC. HOB ELEVATED. RESPONSIVE TO VERBAL AND TACTILE STIMULI. DENIES ANY C/O PAIN NOR DISCOMFORT AT THIS TIME. WOUND CARE DONE. GT INTACT AND PATENT LUISA GLUCERNA 1.2 AT 60ML/HR. DEVLIN CATHETER INTACT AND PATENT DRAINING YELLOW COLORED URINE VIA BEDSIDE. RIGHT HAND # 20 SL INTACT AND PATENT. BED IN LOWEST POSITION, LOCKED. BED ALARM ON. LISA SIDERAILS UP X2. IN NO APPARENT DISTRESS.
--- NOTE | 2019-12-18 19:49 | NUR ---
MS RN NOTES PATIENT RECEIVED IN BED, NON-VERBAL AND RESPONSIVE WITH TACTILE STIMULI. PATIENT ON NASAL CANNULA, 3L, WITH NO SIGNS OF RESPIRATORY DISTRESS, WITH EVEN NON-LABORED BREATHING. G-TUBE SITE INTACT AND IN PLACE, INFUSING 1.2 GLUCERNA AT 60 ml/hr. PATIENT SKIN CLEAN, WARM TO TOUCH AND DRY. DEVLIN CATHETER IN PLACE WITH YELLOW URINE OUTPUT. IV ACCESS INTACT AND PATENT ON RIGHT HAND 20 GAUGE. PATIENT PRESENTS NO SIGN OF PAIN OR DISCOMFORT. SAFETY PRECAUTIONS IN PLACE WITH BED LOCKED, BED ALARM ON, BED IN THE LOWEST POSITION, BILATERAL SIDE RAILS UP, AND CALL LIGHT WITHIN EASY REACH OF THE PATIENT. WILL CONTINUE TO MONITOR PATIENT.
[2019-12-18 20:26] VITALS: BP 102/65
[2019-12-18] MEDS: ATORVASTATIN 40 MG TABLET GT SCH (21:15)
[2019-12-18] MEDS: ACETAMINOPHEN 325 MG TABLET PO PRN (22:10)
--- NOTE | 2019-12-18 22:10 | NUR ---
MS RN NOTES PATIENT'S TEMPERATURE 99.3, APPLIED COOLING MEASURES AND ADMINISTERED PRN TYLENOL 650mg. WILL REASSESS PATIENT'S TEMPERATURE AND CONTINUE TO MONITOR PATIENT.
--- NOTE | 2019-12-18 23:23 | NUR ---
MS RN NOTES PATIENT'S BLOOD SUGAR 266, PER SLIDING SCALE PROTOCOL ADMINISTERED 9 UNITS OF INSULIN. PATIENT ON G-TUBE FEEDING, GLUCERNA 1.2 AT 60ml/hr, WILL CONTINUE TO MONITOR PATIENT.
--- NOTE | 2019-12-18 23:30 | NUR ---
MS RN NOTES PATIENT'S IV ACCESS SITE PULLED OUT AND APPLIED PRESSURE TO SITE. INSERT NEW IV ACCESS LINE ON LEFT HAND 22 GAUGE, INTACT, PATENT WITH SALINE FLUSH. WILL CONTINUE TO MONITOR PATIENT.
[2019-12-19] MEDS: COLISTIMETHATE SODIUM 75 MG in IV NS 0.9% 50 ML IV SCH ×2 (05:04→17:08)
[2019-12-19] MEDS: BLOOD SUGAR DIAGNOSTIC 1 EACH STRIP IN SCH ×4 (05:21→23:34)
[2019-12-19] MEDS: INSULIN REGULAR, HUMAN 100 UNIT/ML 3 ML VIAL SQ PRN ×3 (05:26→23:36)
--- NOTE | 2019-12-19 05:26 | NUR ---
MS RN NOTES PATIENT'S BLOOD SUGAR 290, PER SLIDING SCALE PROTOCOL ADMINISTERED 9 UNITS OF INSULIN. PATIENT ON G-TUBE FEEDING, GLUCERNA 1.2 AT 60ml/hr, WILL CONTINUE TO MONITOR PATIENT.
--- NOTE | 2019-12-19 06:33 | NUR ---
MS RN NOTES PATIENT IN BED RESTING COMFORTABLY. PATIENT NON-VERBAL, RESPONSIVE WITH LIGHT TOUCH. ON NASAL CANNULA 3L, WITH EVEN NON-LABORED BREATHING, AND NO SOB NOTED. IV ACCESS INTACT AND PATENT ON LEFT HAND, 22 GAUGE. PATIENT G-TUBE SITE CLEAN AND INTACT, INFUSING GLUCERNA 1.2 at 60ml/hr. DEVLIN CATHETER IN PLACE WITH YELLOW URINE OUTPUT. MET ALL OF PATIENT'S NEEDS. PROVIDED COMFORT MEASURES TO PATIENT, NO PAIN OR DISCOMFORT PRESENT AT THIS TIME. SAFETY PRECAUTIONS IMPLEMENTED WITH BED IN THE LOWEST POSITION, BED LOCKED, BED ALARM ON, BILATERAL SIDE RAILS UP AND CALL LIGHT WITHIN EASY REACH OF PATIENT. WILL ENDORSE PLAN OF CARE TO UPCOMING DAYSHIFT NURSE.
[2019-12-19 06:37] LABS: BASOPHILS # (AUTO) 0.1 /CMM (0.0-0.2); BASOPHILS % (AUTO) 0.3 % (0.0-2.0); EOSINOPHILS % (AUTO) 6.3 % (0.0-6.0); HEMATOCRIT 31 % (39-51); HEMOGLOBIN 9.8 g/dL (13.5-17.5); LYMPHOCYTES # (AUTO) 2.1 /CMM (0.8-4.8); MEAN CORPUSCULAR HGB CONC 32 g/dl (31.0-36.0); MEAN CORPUSCULAR VOLUME 77 fL (80-96); NEUTROPHILS # (AUTO) 12.2 /CMM (1.8-8.9); NEUTROPHILS % (AUTO) 74.4 % (43.0-81.0); PLATELET COUNT (AUTO) 645 /CMM (150-450); RED BLOOD CELL COUNT(AUTO) 3.98 MIL/uL (4.5-6.0); WHITE BLOOD COUNT (AUTO) 16.4 K/uL (4.3-11.0)
[2019-12-19 06:51] LABS: CALCIUM, SERUM 9.1 mg/dL (8.5-10.1); CREATININE 0.7 mg/dL (0.6-1.3); MAGNESIUM 1.8 mg/dL (1.8-2.4); POTASSIUM 5.3 mmol/L (3.5-5.1)
[2019-12-19 08:00] VITALS: BP 128/68
[2019-12-19] MEDS: FERROUS SULFATE (325 MG) 325 MG/TAB TABLET GT SCH (09:05)
[2019-12-19] MEDS: MULTIVIT W/MINERALS 1 TAB TABLET GT SCH (09:05)
[2019-12-19] MEDS: AMIODARONE HCL 200 MG TABLET GT SCH (09:05)
[2019-12-19] MEDS: ASPIRIN EC 81 MG TABLET.DR PO SCH (09:05)
[2019-12-19] MEDS: LINEZOLID 600 MG TABLET PO SCH ×2 (09:05→21:14)
[2019-12-19] MEDS: PANTOPRAZOLE 40 MG VIAL IV SCH (09:05)
[2019-12-19] MEDS: PROSOURCE / PROSTAT (PYXIS) 30 ML UDC GT SCH ×3 (09:06→17:02)
[2019-12-19] MEDS: MUPIROCIN OINT 2% 22 GM TUBE SCH ×2 (09:07→21:14)
[2019-12-19] MEDS: DAKINS QUARTER STRENGTH (0.125%) 480 ML BOTTLE TOP SCH (09:08)
[2019-12-19] MEDS: NYSTATIN TOP POWDER 15 GM BOTTLE TP SCH ×2 (09:08→21:15)
[2019-12-19] MEDS: CLOTRIMAZOLE 1% 15 GM TUBE TP SCH ×2 (09:08→17:02)
[2019-12-19 09:10] VITALS: BP 128/68
[2019-12-19] MEDS: TICAGRELOR 90 MG TABLET PO SCH ×2 (09:10→17:01)
--- NOTE | 2019-12-19 09:50 | NUR ---
RN NOTES PER HOSPITALIST ALFONZO PROFESSIONAL DEVELOPMENT MANAGER PATIENT NEED PIC LINE INSERTION, AND CONSENT FORM . CALLED NAME SEDA Nicole, AND GET PERMISSION FOR PIC LINE INSERTION, VERIFIED WITH CO -WORKER LESLEY ANSARI.
[2019-12-19] MEDS: GLUCERNA 1.2 1,000 ML BOTTLE GT PRN (11:03)
[2019-12-19] MEDS ORDERED: DEXTROSE 50%-WATER 50 ML DISP.SYRIN IVP ONE (12:00)
[2019-12-19] MEDS ORDERED: Calcium Gluconate 1GM/10ML 4.65 MEQ in IV NS 0.9% 100 ML IV ONE (12:00)
[2019-12-19] MEDS ORDERED: INSULIN REGULAR, HUMAN 100 UNIT/ML 3 ML VIAL IV ONE (12:00)
--- NOTE | 2019-12-19 14:30 | NUR ---
RN NOTES BS-290 MG/DL DEXTROSE NOT GIVEN.
--- NOTE | 2019-12-19 16:46 | NUR ---
RN NOTES SEEN PATIENT VIA VASCULAR SURGEON Dr ACHARYA.
[2019-12-19] MEDS ORDERED: IPRATROPIUM NEB FS 0.5 MG/2.5 ML AMPUL.NEB NEB PRN (17:00)
[2019-12-19 17:01] VITALS: BP 154/94
--- NOTE | 2019-12-19 18:00 | NUR ---
RN NOTES BS-282 MG/DL COVERAGE GIVEN. GTF INTACT INFUSING GLUCERNA 1.2 60ML/HR, PATIENT TOTAL CARE, ASSIST TURN AND REPOSTION Q 2 HR, F/C DRAINING LIGHT YELLOW OUTPUT.MEDICATION ADMINISTERED VIA GT, KEEP HOB ELEVATED FOR ASPIRATION PRECAUTION. CALL LIGHT WITHIN TO REACH. ENDORSED ONCOMING NURSE FOLLOW PLAN OF CARE.
[2019-12-19] MEDS ORDERED: ALBUTEROL FS 2.5 MG/0.5 ML VIAL.NEB NEB PRN (19:30)
--- NOTE | 2019-12-19 19:48 | NUR ---
MS RN OPENING NOTES PATIENT RECEIVED RESTING IN BED COMFORTABLY; NON-VERBAL; PATIENT TOLERATING 3L NC WELL; NO SOB NOTED; RAFAELA PICC LINE INTACT AND PATENT; FLUSHING WELL; NO S/S OF REDNESS OR INFILTRATION NOTED; DEVLIN INTACT AND FLOWING YELLOW OUTPUT; GTUBE INTACT; PATIENT TOLERATING GTUBE FEEDING WELL WITH LOW RESIDUALS; SAFETY PRECAUTIONS IMPLEMENTED; BED LOCKED IN LOW POSITION; SIDE RAILS X2; WILL CONT PLAN OF CARE AND CONT TO MONITOR
[2019-12-19 20:00] VITALS: BP 122/73
--- NOTE | 2019-12-19 20:27 | NUR ---
MS RN NOTES SPOKE WITH PATIENT DAUGHTER REGARDING PROCEDURE IN AM; CONSENT GIVEN AND WITNESSED BY ELAN PEPE
[2019-12-19] MEDS: ACETAMINOPHEN 325 MG TABLET PO PRN (21:14)
[2019-12-19] MEDS: ATORVASTATIN 40 MG TABLET GT SCH (21:17)
[2019-12-20] VITALS (9 sets, daily range): BP systolic 102–120; BP diastolic 45–77
--- NOTE | 2019-12-20 00:03 | NUR ---
MS RN NOTES GTUBE FEEDING STOPPED; PATIENT NPO STATUS MAINTAINED; CHARGE NURSE AWARE GTUBE FEEDING STOPPED FOR SCHEDULED PROCEDURE 12/19 729; WILL CONT TO MONITOR
[2019-12-20] MEDS: COLISTIMETHATE SODIUM 75 MG in IV NS 0.9% 50 ML IV SCH ×2 (05:00→18:07)
[2019-12-20] MEDS: BLOOD SUGAR DIAGNOSTIC 1 EACH STRIP IN SCH ×4 (05:32→23:20)
--- NOTE | 2019-12-20 06:40 | NUR ---
MS RN CLOSING NOTES PATIENT RESTING IN BED COMFORTABLY; PATIENT NON-VERBAL, OPENS EYES; BREATHING EVEN AND UNLABORED; NO SOB NOTED; PATIENT TOLERATING 3L NC WELL; RAFAELA PICC LINE SL INTACT AND PATENT; FLUSHING WELL; NO S/S OF REDNESS OR INFILTRATION; DEVLIN IN PLACE; WITH YELLOW OUTPUT; GTUBE IN PLACE; G TUBE FEEDING STOPPED D/T PROCEDURE IN AM; NO INSULIN COVERAGE GIVEN D/T PATIENT NPO STATUS/GTUBE FEEDING STOPPED AT MIDNIGHT; ALL NEEDS RENDERED; AWAITING OR STAFF FOR PROCEDURE; SAFETY PRECAUTION IMPLEMENTED; BED LOCKED IN LOW POSITION; SIDE RAILS X2; WILL ENDORSE ADRIANA TO ONCOMING SHIFT; WILL INFORM ONCOMING SHIFT OF SCHEDULED SURGICAL PROCEDURE 07
[2019-12-20] MEDS ORDERED: ANESTHESIA TRAY IN PYXIS 1 EA TRAY MC ONE (06:57)
--- NOTE | 2019-12-20 07:15 | NUR ---
MS RN NOTES OR STAFF AT BEDSIDE; TRANSFERRED PATIENT TO OR FOR PROCEDURE; AM SHIFT INFORMED AND AWARE; WILL ENDORSE ADRIANA TO ONCOMING SHIFT
[2019-12-20] MEDS ORDERED: MIDAZOLAM HCL 2 MG/2ML VIAL ONE (07:20)
[2019-12-20] MEDS ORDERED: FAMOTIDINE/PF INJ 20 MG/2 ML VIAL IV ONE (07:20)
[2019-12-20] MEDS ORDERED: FENTANYL PF 250MCG/5ML AMPUL ONE (07:20)
--- NOTE | 2019-12-20 07:28 | NUR ---
MS RN NOTES SPOKE WITH ADDING MACHINE MECHANIC, PER ADDING MACHINE MECHANIC, WAS NOT ABLE TO GET LABS PRIOR TO PATIENT LEAVING FOR PROCEDURE; ADDING MACHINE MECHANIC WILL RETURN LATER ONCE PATIENT IS BACK ON UNIT;
[2019-12-20] MEDS ORDERED: BUPIVACAINE MPF 0.5% W/EPI INJ 30 ML VIAL ONE (07:31)
[2019-12-20] MEDS ORDERED: LIDOCAINE HCL/MPF 1% 30 ML VIAL IJ ONE (07:31)
[2019-12-20] MEDS ORDERED: BACITRACIN 50000 UNITS/VIAL ONE (07:54)
[2019-12-20] MEDS: MULTIVIT W/MINERALS 1 TAB TABLET GT SCH (10:51)
[2019-12-20] MEDS: PANTOPRAZOLE 40 MG VIAL IV SCH (10:51)
[2019-12-20] MEDS: LINEZOLID 600 MG TABLET PO SCH ×2 (10:51→21:10)
[2019-12-20] MEDS: ASPIRIN EC 81 MG TABLET.DR PO SCH (10:52)
[2019-12-20] MEDS: AMIODARONE HCL 200 MG TABLET GT SCH (10:52)
[2019-12-20] MEDS: FERROUS SULFATE (325 MG) 325 MG/TAB TABLET GT SCH (10:52)
[2019-12-20] MEDS: CLOTRIMAZOLE 1% 15 GM TUBE TP SCH ×2 (10:53→16:29)
[2019-12-20] MEDS: MUPIROCIN OINT 2% 22 GM TUBE SCH ×2 (10:53→21:10)
[2019-12-20] MEDS: PROSOURCE / PROSTAT (PYXIS) 30 ML UDC GT SCH ×3 (10:53→16:30)
[2019-12-20] MEDS: NYSTATIN TOP POWDER 15 GM BOTTLE TP SCH ×2 (10:54→21:10)
[2019-12-20] MEDS: DAKINS QUARTER STRENGTH (0.125%) 480 ML BOTTLE TOP SCH (10:54)
[2019-12-20] MEDS: TICAGRELOR 90 MG TABLET PO SCH ×2 (10:58→16:31)
--- NOTE | 2019-12-20 11:00 | NUR ---
MS/RN RETURN FROM OR Patient came back from the OR for bilateral lower extremity excisional debridement. Patient is awake, non-verbal, but responsive to tactile stimulation. VSS, afebrile, no SOB noted. T 98.2, HR 115, RR 18, 98% saturating at 2L oxygen via NC. OR nurse reinforced instructions to leave posterior splint and dressings intact, offload lower extremities with pillows, place cast padding soft rolls in the patient's room, and resume diet and medications as prescribed. Bilateral toes are warm to touch and capillary refill < 3 seconds. RAFAELA PICC line intact, patent, and flushes well. G-tube intact and patent, no residual noted, and feeding is resumed @ 60mL/hr. Fall precautions maintained. Will continue current medical management.
--- NOTE | 2019-12-20 11:09 | NUR ---
MS/RN OPENING NOTES Patient was sent to OR at 0700 for bilateral lower extremities excisional debridement under the procedure of Doctor Sommers.
[2019-12-20] MEDS: INSULIN REGULAR, HUMAN 100 UNIT/ML 3 ML VIAL SQ PRN ×3 (12:10→23:22)
[2019-12-20 12:38] LABS: BASOPHILS # (AUTO) 0.1 /CMM (0.0-0.2); BASOPHILS % (AUTO) 0.4 % (0.0-2.0); EOSINOPHILS % (AUTO) 5.1 % (0.0-6.0); HEMATOCRIT 30 % (39-51); HEMOGLOBIN 9.2 g/dL (13.5-17.5); LYMPHOCYTES # (AUTO) 1.8 /CMM (0.8-4.8); MEAN CORPUSCULAR HGB CONC 31 g/dl (31.0-36.0); MEAN CORPUSCULAR VOLUME 78 fL (80-96); MONOCYTES # (AUTO) 1.1 /CMM (0.1-1.30); MONOCYTES % (AUTO) 5.6 % (2.0-12.0); NEUTROPHILS # (AUTO) 16.2 /CMM (1.8-8.9); NEUTROPHILS % (AUTO) 79.9 % (43.0-81.0); PLATELET COUNT (AUTO) 694 /CMM (150-450); RED BLOOD CELL COUNT(AUTO) 3.87 MIL/uL (4.5-6.0); WHITE BLOOD COUNT (AUTO) 20.2 K/uL (4.3-11.0)
[2019-12-20 12:50] LABS: CREATININE 0.9 mg/dL (0.6-1.3); MAGNESIUM 1.7 mg/dL (1.8-2.4); PHOSPHORUS 4.4 mg/dL (2.5-4.9); POTASSIUM 4.5 mmol/L (3.5-5.1)
[2019-12-20] MEDS: GLUCERNA 1.2 1,000 ML BOTTLE GT PRN (14:48)
--- NOTE | 2019-12-20 19:15 | NUR ---
MS/RN CLOSING NOTES Patient resting in bed, non-verbal, but responsive to tactile stimulation. VSS, afebrile, no SOB noted. No cardiac distress noted. RAFAELA PICC line intact, patent, and flushes well. G-tube intact and patent, feeding is running @ 60mL/hr. Sensation from all peripheral extremities intact. Fall precautions maintained. Will endorse to automobile damage appraiser nurse about current medical management.
--- NOTE | 2019-12-20 19:35 | NUR ---
MS RN OPENING NOTES PATIENT RECEIVED RESTING IN BED COMFORTABLY; OBTUNDED AND NONVERBAL BUT OPENS EYES; BREATHING EVEN AND UNLABORED; PATIENT TOLERATING 3L NC WELL; NO SOB NOTED; RAFAELA PICC LINE INTACT AND PATENT; FLUSHING WELL; NO S/S OF REDNESS OR INFILTRATION; G TUBE IN PLACE RUNNING GLUCERNA 1.2 @ 60ML/HR; PATIENT TOLERATING TUBE FEEDING WELL WITH LOW RESIDUALS; DEVLIN CATH IN PLACE WITH YELLOW OUTPUT; SAFETY PRECAUTIONS IMPLEMENTED; BED LOCKED IN LOW POSITION; SIDE RAILS X2; WILL CONT TO MONITOR
[2019-12-20] MEDS: ATORVASTATIN 40 MG TABLET GT SCH (21:10)
[2019-12-21] MEDS: BLOOD SUGAR DIAGNOSTIC 1 EACH STRIP IN SCH ×3 (06:13→16:49)
[2019-12-21] MEDS: COLISTIMETHATE SODIUM 75 MG in IV NS 0.9% 50 ML IV SCH ×2 (06:13→17:49)
[2019-12-21] MEDS: INSULIN REGULAR, HUMAN 100 UNIT/ML 3 ML VIAL SQ PRN ×3 (06:18→16:50)
--- NOTE | 2019-12-21 06:57 | NUR ---
MS RN CLOSING NOTES PATIENT RESTING IN BED COMFORTABLY; BREATHING EVEN AND UNLABORED; NO SOB NOTED; PATIENT TOLERATING 3L NC WELL; PATIENT NONVERBAL AND OBTUNDED; RAFAELA PICC LINE INTACT AND PATENT; FLUSHING WELL; NO S/S OF REDNESS OR INFILTRATION; DEVLIN CATH INTACT, FLOWING YELLOW OUTPUT OF 700CC; ALL NEEDS RENDERED; SAFETY PRECAUTIONS IMPLEMENTED; BED LOCKED IN LOW POSITION; SIDE RAILS X2; WILL ENDORSE ADRIANA TO ONCOMING SHIFT
[2019-12-21 07:01] LABS: BASOPHILS # (AUTO) 0.1 /CMM (0.0-0.2); BASOPHILS % (AUTO) 0.3 % (0.0-2.0); EOSINOPHILS % (AUTO) 2.5 % (0.0-6.0); HEMATOCRIT 27 % (39-51); HEMOGLOBIN 8.2 g/dL (13.5-17.5); LYMPHOCYTES # (AUTO) 1.3 /CMM (0.8-4.8); LYMPHOCYTES % (AUTO) 8.6 % (20.0-44.0); MEAN CORPUSCULAR HGB CONC 31 g/dl (31.0-36.0); MEAN CORPUSCULAR VOLUME 78 fL (80-96); MONOCYTES % (AUTO) 6.4 % (2.0-12.0); NEUTROPHILS # (AUTO) 12.7 /CMM (1.8-8.9); NEUTROPHILS % (AUTO) 82.2 % (43.0-81.0); PLATELET COUNT (AUTO) 612 /CMM (150-450); RED BLOOD CELL COUNT(AUTO) 3.42 MIL/uL (4.5-6.0); WHITE BLOOD COUNT (AUTO) 15.4 K/uL (4.3-11.0)
[2019-12-21 07:26] LABS: CALCIUM, SERUM 8.8 mg/dL (8.5-10.1); CREATININE 0.8 mg/dL (0.6-1.3); MAGNESIUM 1.8 mg/dL (1.8-2.4); PHOSPHORUS 3.9 mg/dL (2.5-4.9); POTASSIUM 4.1 mmol/L (3.5-5.1)
[2019-12-21 08:00] VITALS: BP 133/75
[2019-12-21] MEDS: ASPIRIN EC 81 MG TABLET.DR PO SCH (08:32)
[2019-12-21] MEDS: LINEZOLID 600 MG TABLET PO SCH ×2 (08:33→20:55)
[2019-12-21] MEDS: PANTOPRAZOLE 40 MG VIAL IV SCH (08:33)
[2019-12-21] MEDS: FERROUS SULFATE (325 MG) 325 MG/TAB TABLET GT SCH (08:33)
[2019-12-21] MEDS: AMIODARONE HCL 200 MG TABLET GT SCH (08:33)
[2019-12-21] MEDS: MULTIVIT W/MINERALS 1 TAB TABLET GT SCH (08:33)
[2019-12-21] MEDS: PROSOURCE / PROSTAT (PYXIS) 30 ML UDC GT SCH ×3 (08:35→16:51)
[2019-12-21] MEDS: TICAGRELOR 90 MG TABLET PO SCH ×2 (08:36→16:35)
[2019-12-21] MEDS: CLOTRIMAZOLE 1% 15 GM TUBE TP SCH ×2 (08:37→16:35)
[2019-12-21] MEDS: MUPIROCIN OINT 2% 22 GM TUBE SCH ×2 (08:37→21:01)
[2019-12-21] MEDS: DAKINS QUARTER STRENGTH (0.125%) 480 ML BOTTLE TOP SCH (08:37)
[2019-12-21] MEDS: NYSTATIN TOP POWDER 15 GM BOTTLE TP SCH ×2 (08:38→21:01)
[2019-12-21 08:46] VITALS: BP 133/75
[2019-12-21 12:10] VITALS: BP 133/75
[2019-12-21] MEDS: GLUCERNA 1.2 1,000 ML BOTTLE GT PRN (12:40)
--- NOTE | 2019-12-21 14:00 | NUR ---
RN NOTE BLE wound dressings changed with Dr. Sommers, extremities offloaded. Per MD, to keep the same dressings and no need for dressing change for the rest of the patient's hospital stay.
[2019-12-21] MEDS: ACETAMINOPHEN 650 MG/20.3 ML UDC GT PRN (16:03)
[2019-12-21 16:16] VITALS: BP 107/66
--- NOTE | 2019-12-21 16:18 | NUR ---
RN NOTE Patient feels warm to touch, temp is 99.9, patient has increased moaning. Patient cleaned, wound dressings changed, tylenol 650 mg given. BP 107/66 HR 121 RR 20 O2 96% on 3L NC. Will continue to monitor.
[2019-12-21 16:51] VITALS: BP 101/55
--- NOTE | 2019-12-21 16:52 | NUR ---
RN NOTE Ok per MD to retest patient for COVID due to [facility] requiring second test prior to DC.
--- NOTE | 2019-12-21 17:45 | NUR ---
RN NOTE COVID test sent to lab.
--- NOTE | 2019-12-21 19:30 | NUR ---
RN MS OPENING NOTES RECEIVED PATIENT IN BED OBTUNDED, ON 3L VIA NC RESPIRATIONS EVEN AND UNLABORED WITH EQUAL RISE AND FALL OF CHEST, TOLERATING 02 WELL, HEAD OF BED ELEVATED FOR ASPIRATION PRECAUTIONS, DEVLIN CATHETER IN PLACE DRAINING WELL. RAFAELA PICC LINE INTACT AND PATENT, TKO , NO REDNESS, NO INFILTRATION, APPEARS TO BE FREE OF ANY PAIN OR DISCOMFORT AT THIS TIME, ORIENTED TO STAFF AND CALL LIGHT AND KEPT WITHIN REACH, BED ALARM IN PLACE, LOW BED IS LOCKED AND LOWEST POSITION. BLE WOUND DRESSINGS REMAIN CLEAN DRY AND INTACT, WILL CONTINUE TO MONITOR.
--- NOTE | 2019-12-21 19:32 | NUR ---
RN CLOSING NOTE Patient is resting in bed, A/O x0 obtunded, showing no signs of acute distress or SOB, saturating well on 3L NC. PICC line in RAFAELA is running TKO, clean and intact. Patient repositioned every 2 hours, dressings changed, patient kept clean and dry throughout shift. All patient needs met, all due medications given. Bed is in lowest position, side rails x3 in upright position, call light is within reach. Fall safety and aspiration precautions enforced. Will endorse to night shift supervisor.
[2019-12-21 20:00] VITALS: BP 130/67
[2019-12-21] MEDS: ATORVASTATIN 40 MG TABLET GT SCH (21:00)
[2019-12-21] MEDS: INSULIN GLARGINE, 100 UNIT/ML CARTRIDGE SQ SCH (21:11)
[2019-12-22] MEDS: BLOOD SUGAR DIAGNOSTIC 1 EACH STRIP IN SCH ×4 (01:01→17:16)
[2019-12-22] MEDS: INSULIN REGULAR, HUMAN 100 UNIT/ML 3 ML VIAL SQ PRN ×4 (01:03→17:24)
[2019-12-22] MEDS: COLISTIMETHATE SODIUM 75 MG in IV NS 0.9% 50 ML IV SCH ×2 (05:25→17:19)
--- NOTE | 2019-12-22 06:25 | NUR ---
RN MS CLOSING NOTES PATIENT IN BED OBTUNDED, ON 3L VIA NC RESPIRATIONS EVEN AND UNLABORED WITH EQUAL RISE AND FALL OF CHEST, TOLERATING 02 WELL, HEAD OF BED ELEVATED FOR ASPIRATION PRECAUTIONS, DEVLIN CATHETER IN PLACE DRAINING WELL. RAFAELA PICC LINE INTACT AND PATENT, TKO , NO REDNESS, NO INFILTRATION, APPEARS TO BE FREE OF ANY PAIN OR DISCOMFORT AT THIS TIME, WOUND CARE TO AFFECTED AREAS DONE, REPOSITIONED OFFLOADED, CALL LIGHT KEPT WITHIN REACH, BED ALARM IN PLACE, LOW BED IS LOCKED AND LOWEST POSITION. BLE WOUND DRESSINGS REMAIN CLEAN DRY AND INTACT., WILL CONTINUE TO MONITOR AND ENDORSE TO NEXT SHIFT. ALL NEEDS WERE ATTENDED.
[2019-12-22 06:53] LABS: BASOPHILS % (AUTO) 0.2 % (0.0-2.0); HEMATOCRIT 28 % (39-51); HEMOGLOBIN 8.5 g/dL (13.5-17.5); LYMPHOCYTES # (AUTO) 1.3 /CMM (0.8-4.8); MEAN CORPUSCULAR HGB CONC 30 g/dl (31.0-36.0); MEAN CORPUSCULAR VOLUME 78 fL (80-96); MONOCYTES # (AUTO) 0.9 /CMM (0.1-1.30); MONOCYTES % (AUTO) 5.6 % (2.0-12.0); NEUTROPHILS # (AUTO) 13.7 /CMM (1.8-8.9); NEUTROPHILS % (AUTO) 83.2 % (43.0-81.0); PLATELET COUNT (AUTO) 601 /CMM (150-450); RED BLOOD CELL COUNT(AUTO) 3.58 MIL/uL (4.5-6.0); WHITE BLOOD COUNT (AUTO) 16.4 K/uL (4.3-11.0)
[2019-12-22 06:59] LABS: CALCIUM, SERUM 8.7 mg/dL (8.5-10.1); CREATININE 0.8 mg/dL (0.6-1.3); MAGNESIUM 1.8 mg/dL (1.8-2.4); PHOSPHORUS 3.6 mg/dL (2.5-4.9); POTASSIUM 3.9 mmol/L (3.5-5.1)
[2019-12-22 08:00] VITALS: BP 136/72
[2019-12-22] MEDS: AMIODARONE HCL 200 MG TABLET GT SCH (10:04)
[2019-12-22] MEDS: LINEZOLID 600 MG TABLET PO SCH ×2 (10:04→21:02)
[2019-12-22] MEDS: ASPIRIN EC 81 MG TABLET.DR PO SCH (10:04)
[2019-12-22] MEDS: FERROUS SULFATE (325 MG) 325 MG/TAB TABLET GT SCH (10:04)
[2019-12-22] MEDS: PROSOURCE / PROSTAT (PYXIS) 30 ML UDC GT SCH ×3 (10:05→17:15)
[2019-12-22] MEDS: PANTOPRAZOLE 40 MG VIAL IV SCH (10:05)
[2019-12-22] MEDS: MULTIVIT W/MINERALS 1 TAB TABLET GT SCH (10:05)
[2019-12-22] MEDS: TICAGRELOR 90 MG TABLET PO SCH ×2 (10:07→17:18)
[2019-12-22] MEDS: MUPIROCIN OINT 2% 22 GM TUBE SCH ×2 (10:07→21:02)
[2019-12-22] MEDS: DAKINS QUARTER STRENGTH (0.125%) 480 ML BOTTLE TOP SCH (10:08)
[2019-12-22] MEDS: CLOTRIMAZOLE 1% 15 GM TUBE TP SCH ×2 (10:08→17:15)
[2019-12-22] MEDS: NYSTATIN TOP POWDER 15 GM BOTTLE TP SCH ×2 (10:09→21:01)
[2019-12-22] MEDS: GLUCERNA 1.2 1,000 ML BOTTLE GT PRN (10:12)
--- NOTE | 2019-12-22 14:33 | NUR ---
rn notes bs-294 mg/dl coverage given, infusing Glucerna 1.2 GTF intact, keep HOB 40 degree elevated for aspiration precaution, assist turn AND REPOSTION Q 2 HR, CALL LIGHT WITHIN TO REACH, CONTINUED MONITORING.
--- NOTE | 2019-12-22 18:30 | NUR ---
rn notes bs-270 mg/dl, coverage given, also administered scheduled medication, v/s stable, GTF intact infusing Glucerna 1.2 60 ml/hr, pic line intact, assist patient turn and reposition q2 hr. transferred patient to the [facility] because pending covid test result. report given oncoming RN follow plan of care.
--- NOTE | 2019-12-22 19:14 | NUR ---
RN NOTE PT ARRIVED TO UNIT MS RN AT BEDSIDE
--- NOTE | 2019-12-22 19:33 | NUR ---
RN OPENING NOTE PATIENT IN BED IN SEMI-FOWLERS POSITION ON 3L VIA NC TOLERATING 02 WELL, DEVLIN CATHETER IN PLACE DRAINING YELLOW URINE BY GRAVITY. RAFAELA PICC LINE PATENT AND INTACT. NO REDNESS, NO INFILTRATION FLUSHING WELL. DRESSING TO BLE AND SACRUM DRESSINGS CLEAN AND DRY. CALL LIGHT KEPT WITHIN REACH, BED LOCKED AND LOWEST POSITION. WILL CONTINUE TO MONITOR PT.
[2019-12-22 20:00] VITALS: BP 120/69
[2019-12-22] MEDS: ATORVASTATIN 40 MG TABLET GT SCH (21:12)
[2019-12-22] MEDS: INSULIN GLARGINE, 100 UNIT/ML CARTRIDGE SQ SCH (22:09)
[2019-12-23] VITALS: BP 123/76
[2019-12-23] MEDS: BLOOD SUGAR DIAGNOSTIC 1 EACH STRIP IN SCH ×4 (00:16→17:02)
[2019-12-23] MEDS: INSULIN REGULAR, HUMAN 100 UNIT/ML 3 ML VIAL SQ PRN ×4 (00:19→17:10)
[2019-12-23 04:00] VITALS: BP 114/77
[2019-12-23] MEDS: GLUCERNA 1.2 1,000 ML BOTTLE GT PRN (05:00)
[2019-12-23] MEDS: COLISTIMETHATE SODIUM 75 MG in IV NS 0.9% 50 ML IV SCH ×2 (05:57→17:04)
[2019-12-23 06:11] LABS: BASOPHILS % (AUTO) 0.3 % (0.0-2.0); HEMATOCRIT 25 % (39-51); HEMOGLOBIN 7.8 g/dL (13.5-17.5); LYMPHOCYTES # (AUTO) 1.4 /CMM (0.8-4.8); LYMPHOCYTES % (AUTO) 9.5 % (20.0-44.0); MEAN CORPUSCULAR HGB CONC 31 g/dl (31.0-36.0); MEAN CORPUSCULAR VOLUME 78 fL (80-96); MONOCYTES % (AUTO) 6.7 % (2.0-12.0); NEUTROPHILS # (AUTO) 11.7 /CMM (1.8-8.9); NEUTROPHILS % (AUTO) 77.5 % (43.0-81.0); PLATELET COUNT (AUTO) 578 /CMM (150-450); RED BLOOD CELL COUNT(AUTO) 3.24 MIL/uL (4.5-6.0); WHITE BLOOD COUNT (AUTO) 15.1 K/uL (4.3-11.0)
[2019-12-23 06:46] LABS: CALCIUM, SERUM 8.6 mg/dL (8.5-10.1); MAGNESIUM 1.8 mg/dL (1.8-2.4); PHOSPHORUS 4.1 mg/dL (2.5-4.9)
--- NOTE | 2019-12-23 06:53 | NUR ---
RN CLOSING NOTE PATIENT IN BED IN SEMI-FOWLERS POSITION ON 3L VIA NC TOLERATING 02 WELL, DEVLIN CATHETER IN PLACE DRAINING YELLOW URINE BY GRAVITY. PT AFEBRILE DURING SHIFT. RAFAELA PICC LINE PATENT AND INTACT. NO REDNESS, NO INFILTRATION FLUSHING WELL. DRESSING TO BLE AND SACRUM DRESSINGS CLEAN AND DRY. ST ON TELE MONITOR. GLUCERNA 1.2 INFUSING AT 60ML/HR, TOLERATING FEEDING WELL. CALL LIGHT WITHIN REACH, BED LOCKED AND LOWEST POSITION. ENDORSED TO AM RN FOR ADRIANA
--- NOTE | 2019-12-23 07:50 | NUR ---
RECEIVED REPORT FROM [facility] SHIFT NURSE. TRANSFER ORDERS IN PLACE TO TRANSFER PT TO [facility] 07:37 GAVE TELEPHONE REPORT. 07:50 TRANSFERRED PT VIA ACLS PROTOCOL TO ROOM [facility]. NURSE BY BEDSIDE AND RESUMED ADRIANA.
[2019-12-23 08:00] VITALS: BP 135/76
--- NOTE | 2019-12-23 08:00 | NUR ---
SATURATOR TENDER OPENING NOTE PT BROUGHT IN FROM [facility] BY [facility]. NO CARDIAC OR RESPIRATORY DISTRESS NOTED. NO SOB NOTED. SATURATING WELL AT 3L OF O2 VIA NC. PT IS NON VERBAL AND OBTUNDED. ONTELE MACHINERY ERECTOR SHOWING SINUS TACHY. DEVLIN INTACT AND PATENT DRAINING WITH CLEAR YELLOW URINE. GTUBE INTACT AND PATENT AND FLUSHING WELL. NO GASTRIC RESIDUAL NOTED. GLUCERNA 1.2 RUNNING AT 60ML/HR. IV ACCESS NOTED ON R UPPER ARM PICC LINE. INTACT AND PATENT AND FLUSHING WELL. NO S/S OF INFECTION OR INFILTRATION NOTED. SAFETY PRECAUTIONS IN PLACE. BED LOCKED AND IN LOW POSITION. SIDE RAILS UP X2. BED ALARM ON. CALL LIGHT WITHIN REACH. WILL CONT TO MONITOR.
[2019-12-23] MEDS: ASPIRIN EC 81 MG TABLET.DR PO SCH (08:48)
[2019-12-23] MEDS: FERROUS SULFATE (325 MG) 325 MG/TAB TABLET GT SCH (08:48)
[2019-12-23] MEDS: MULTIVIT W/MINERALS 1 TAB TABLET GT SCH (08:48)
[2019-12-23] MEDS: PANTOPRAZOLE 40 MG VIAL IV SCH (08:48)
[2019-12-23] MEDS: ACETAMINOPHEN 650 MG/20.3 ML UDC GT PRN ×2 (08:48→21:30)
[2019-12-23] MEDS: PROSOURCE / PROSTAT (PYXIS) 30 ML UDC GT SCH ×3 (08:49→17:00)
[2019-12-23] MEDS: AMIODARONE HCL 200 MG TABLET GT SCH (08:49)
--- NOTE | 2019-12-23 09:30 | NUR ---
SEEN BY DR. VERA PT WAS SEEN BY DR. VERA AND ORDERED TO D/C TELE MONITORING.
[2019-12-23] MEDS: MUPIROCIN OINT 2% 22 GM TUBE SCH ×2 (09:32→21:08)
[2019-12-23] MEDS: CLOTRIMAZOLE 1% 15 GM TUBE TP SCH ×2 (09:33→16:59)
[2019-12-23] MEDS: NYSTATIN TOP POWDER 15 GM BOTTLE TP SCH ×2 (09:33→21:30)
[2019-12-23] MEDS: DAKINS QUARTER STRENGTH (0.125%) 480 ML BOTTLE TOP SCH (09:33)
[2019-12-23] MEDS: LINEZOLID 600 MG TABLET PO SCH ×2 (09:37→21:29)
--- NOTE | 2019-12-23 09:45 | NUR ---
TEMP 100.1 TEMP NOTED AT 100.1 TYLENOL PRN ADMINISTERED VIA GTUBE. WILL REASSESS IN 1 HR.
--- NOTE | 2019-12-23 10:45 | NUR ---
TEMP RE-CHECK TEMP RE-CHECKED, NOW NOTED AT 98.9. COOLING MEASURES IN PLACE.
[2019-12-23] MEDS: TICAGRELOR 90 MG TABLET PO SCH ×2 (11:46→16:59)
[2019-12-23] MEDS: FLUCONAZOLE (100 MG) 100 MG TABLET PO SCH (18:44)
--- NOTE | 2019-12-23 19:15 | NUR ---
MS RN CLOSING NOTES PT IN BED AWAKE. NON VERBAL AND OBTUNDED. NO CARDIAC OR RESPIRATORY DISTRESS NOTED. NO SOB NOTED. SATURATING WELL AT 3L OF O2 VIA NC. DEVLIN INTACT AND PATENT DRAINING WITH CLEAR YELLOW URINE. GTUBE INTACT AND PATENT AND FLUSHING WELL. NO GASTRIC RESIDUAL NOTED. GLUCERNA 1.2 RUNNING AT 60ML/HR. IV ACCESS NOTED ON R UPPER ARM PICC LINE ON TKO. INTACT AND PATENT AND FLUSHING WELL. NO S/S OF INFECTION OR INFILTRATION NOTED. SAFETY PRECAUTIONS IN PLACE. BED LOCKED AND IN LOW POSITION. SIDE RAILS UP X2. BED ALARM ON. CALL LIGHT WITHIN REACH. WILL CONT TO MONITOR.
--- NOTE | 2019-12-23 19:30 | NUR ---
MS RN OPENING NOTE PATIENT IN BED AWAKE AND ALERT, IN SEMI-FOWLERS POSITION ON 3L VIA NC TOLERATING 02 WELL, DEVLIN CATHETER IN PLACE DRAINING YELLOW URINE BY GRAVITY. RAFAELA PICC LINE PATENT AND INTACT. NO REDNESS, NO INFILTRATION FLUSHING WELL. GT PATENT AND INTACT. REPOSITIONED FOR COMFORT. CALL LIGHT KEPT WITHIN REACH, BED LOCKED AND LOWEST POSITION. WILL CONTINUE TO MONITOR PT.
[2019-12-23 20:00] VITALS: BP 133/67
[2019-12-23 20:23] VITALS: BP 133/67
[2019-12-23] MEDS: ATORVASTATIN 40 MG TABLET GT SCH (21:29)
--- NOTE | 2019-12-23 21:30 | NUR ---
TEMP 100.0 TEMP NOTED AT 100.1 TYLENOL PRN ADMINISTERED VIA G-TUBE. WILL REASSESS IN 1 HR. Addendum: 12/24/19 at 0330 by YAS GORMAN RN TEMP 100.1
[2019-12-23] MEDS: INSULIN GLARGINE, 100 UNIT/ML CARTRIDGE SQ SCH (22:13)
--- NOTE | 2019-12-23 22:40 | NUR ---
TEMP RE-CHECKED TEMP RE-CHECKED, NOW NOTED AT 98.5. COOLING MEASURES IN PLACE
[2019-12-24] MEDS: BLOOD SUGAR DIAGNOSTIC 1 EACH STRIP IN SCH ×5 (00:31→23:42)
[2019-12-24] MEDS: INSULIN REGULAR, HUMAN 100 UNIT/ML 3 ML VIAL SQ PRN ×5 (00:34→23:43)
[2019-12-24] MEDS: GLUCERNA 1.2 1,000 ML BOTTLE GT PRN (05:06)
[2019-12-24] MEDS: COLISTIMETHATE SODIUM 75 MG in IV NS 0.9% 50 ML IV SCH ×2 (05:53→17:57)
--- NOTE | 2019-12-24 06:41 | NUR ---
MS RN CLOSING NOTES PT IN BED AWAKE. NON VERBAL. NO APPARENT DISTRESS NOTED. SATURATING WELL AT 3L OF O2 VIA NC. DEVLIN INTACT AND PATENT DRAINING WITH CLEAR YELLOW URINE. G-TUBE INTACT AND PATENT AND FLUSHING WELL. NO GASTRIC RESIDUAL NOTED. GLUCERNA 1.2 RUNNING AT 60ML/HR. IV ACCESS NOTED ON R UPPER ARM PICC LINE ON TKO. INTACT AND PATENT AND FLUSHING WELL. NO S/S OF INFECTION OR INFILTRATION NOTED. SAFETY PRECAUTIONS IN PLACE. BED LOCKED AND IN LOW POSITION. SIDE RAILS UP X2. BED ALARM ON. CALL LIGHT WITHIN REACH. WILL ENDORSE TO THE DAY SHIFT NURSE FOR CONTINUITY OF CARE.
--- NOTE | 2019-12-24 07:30 | NUR ---
MS/RN Opening note Received patient in bed, non verbal, obtunded, does no appears pain or any discomfort. Skin is warm to touch, kept clean/dry, intact picc line site. Noticed temp. over 100, given Tylenol and applied ice pack, will recheck temperature again. Respiratory even and unlabored with oxygen at 3LPM, noticed dry cough occasionally. Pt on Feldman catheter, no abnormal observed. Keep bed in lock position with low and elevated HOB for secure airway. Call light within reach, will continue to monitor.
[2019-12-24 08:00] VITALS: BP 86/62
[2019-12-24] MEDS: ACETAMINOPHEN 650 MG/20.3 ML UDC GT PRN (08:07)
[2019-12-24] MEDS: FLUCONAZOLE (100 MG) 100 MG TABLET PO SCH (08:07)
[2019-12-24] MEDS: LINEZOLID 600 MG TABLET PO SCH ×2 (08:07→21:09)
[2019-12-24] MEDS: MULTIVIT W/MINERALS 1 TAB TABLET GT SCH (08:07)
[2019-12-24] MEDS: PROSOURCE / PROSTAT (PYXIS) 30 ML UDC GT SCH ×3 (08:07→18:08)
[2019-12-24] MEDS: FERROUS SULFATE (325 MG) 325 MG/TAB TABLET GT SCH (08:07)
[2019-12-24] MEDS: PANTOPRAZOLE 40 MG VIAL IV SCH (08:07)
[2019-12-24] MEDS: ASPIRIN EC 81 MG TABLET.DR PO SCH (08:07)
[2019-12-24 08:10] LABS: BASOPHILS % (AUTO) 0.2 % (0.0-2.0); EOSINOPHILS % (AUTO) 2.9 % (0.0-6.0); HEMATOCRIT 28 % (39-51); HEMOGLOBIN 8.5 g/dL (13.5-17.5); LYMPHOCYTES # (AUTO) 1.4 /CMM (0.8-4.8); LYMPHOCYTES % (AUTO) 7.8 % (20.0-44.0); MEAN CORPUSCULAR HGB CONC 31 g/dl (31.0-36.0); MEAN CORPUSCULAR VOLUME 78 fL (80-96); MONOCYTES % (AUTO) 5.3 % (2.0-12.0); NEUTROPHILS # (AUTO) 15.3 /CMM (1.8-8.9); NEUTROPHILS % (AUTO) 83.8 % (43.0-81.0); PLATELET COUNT (AUTO) 602 /CMM (150-450); RED BLOOD CELL COUNT(AUTO) 3.56 MIL/uL (4.5-6.0); WHITE BLOOD COUNT (AUTO) 18.3 K/uL (4.3-11.0)
[2019-12-24] MEDS: DAKINS QUARTER STRENGTH (0.125%) 480 ML BOTTLE TOP SCH (08:10)
[2019-12-24] MEDS: MUPIROCIN OINT 2% 22 GM TUBE SCH ×2 (08:10→21:10)
[2019-12-24] MEDS: NYSTATIN TOP POWDER 15 GM BOTTLE TP SCH ×2 (08:11→21:09)
[2019-12-24] MEDS: CLOTRIMAZOLE 1% 15 GM TUBE TP SCH ×2 (08:11→17:00)
[2019-12-24] MEDS: TICAGRELOR 90 MG TABLET PO SCH ×2 (08:13→18:08)
[2019-12-24 08:52] LABS: CALCIUM, SERUM 8.9 mg/dL (8.5-10.1); CREATININE 0.7 mg/dL (0.6-1.3); PHOSPHORUS 3.8 mg/dL (2.5-4.9)
[2019-12-24] MEDS: AMIODARONE HCL 200 MG TABLET GT SCH (09:00)
[2019-12-24 16:00] VITALS: BP 105/56
--- NOTE | 2019-12-24 18:48 | NUR ---
MS/RN Closing note Patient in bed comfortable, does no appears pain or any discomfort. Intact piccline and skin is warm ot touch, changed dressing on sacral. Respiratory even and unlabored with oxygen at 3LPM. keep bed in locked position with low, and elevated head of bed, call light within reach, will endorse power and recovery shift engineer.
--- NOTE | 2019-12-24 19:28 | NUR ---
MS RN OPENING NOTES PATIENT IS OBTUNDED AND NONVERBAL; ABLE TO OPEN EYES. ON 3L NC. NO S/S OF ACUTE RESPIRATORY DISTRESS; BREATHING IS EVEN AND UNLABORED. NO S/S OF PAIN NOTED. DEVLIN CATH PRESENT AND DRAINING WELL. G-TUBE FEEDING PRESENT WITH GLUCERNA RUNNING AT 60 ML/HR; PATIENT TOLERATING WELL. PICC LINE PRESENT ON RIGHT UPPER ARM, INTACT AND PATENT, NS RUNNING TKO. SAFETY MEASURES IN PLACE AND PATIENT'S NEEDS MET. BED LOCKED, ALARM ON, SIDE RAILS X2, CALL LIGHT WITHIN REACH. WILL CONTINUE TO MONITOR.
[2019-12-24 20:00] VITALS: BP 112/60
[2019-12-24 20:30] VITALS: BP 112/60
[2019-12-24] MEDS: ATORVASTATIN 40 MG TABLET GT SCH (21:09)
[2019-12-24] MEDS: INSULIN GLARGINE, 100 UNIT/ML CARTRIDGE SQ SCH (21:33)
--- NOTE | 2019-12-24 21:34 | NUR ---
MS RN NOTES BARCODE FOR LANTUS NOT SCANNING. MANUAL BARCODE UTILIZED ON EMAR.
[2019-12-25] MEDS: COLISTIMETHATE SODIUM 75 MG in IV NS 0.9% 50 ML IV SCH ×2 (05:31→17:02)
[2019-12-25] MEDS: BLOOD SUGAR DIAGNOSTIC 1 EACH STRIP IN SCH ×3 (06:08→17:00)
[2019-12-25] MEDS: GLUCERNA 1.2 1,000 ML BOTTLE GT PRN (06:09)
[2019-12-25] MEDS: INSULIN REGULAR, HUMAN 100 UNIT/ML 3 ML VIAL SQ PRN ×3 (06:15→17:09)
--- NOTE | 2019-12-25 06:44 | NUR ---
MS RN CLOSING NOTES PATIENT IS OBTUNDED AND NONVERBAL; ABLE TO OPEN EYES. ON 3L NC. NO S/S OF ACUTE RESPIRATORY DISTRESS OR PAIN NOTED. DEVLIN CATH REMAINS PATENT; 500 ML OF CLEAR YELLOW URINE EMPTIED. PATIENT TOLERATING GTUBE FEEDING WITH GLUCERNA 1.2 WELL; NO RESIDUALS NOTED. PICC LINE PRESENT ON RIGHT UPPER ARM, INTACT AND PATENT, NS RUNNING TKO. SAFETY MEASURES IN PLACE AND PATIENT'S NEEDS MET. BED LOCKED, ALARM ON, SIDE RAILS X2, CALL LIGHT WITHIN REACH. WILL ENDORSE TO DAY SHIFT NURSE PLAN OF CARE.
--- NOTE | 2019-12-25 07:40 | NUR ---
MS/RN Opening note Received patient in bed, non verbal, able to responds physical stimuli. Respiratory even and unlabored with oxygen at 3LPM, no distress or SOB observed. kin is warm to touch, kept clean/dry, intact piccline, g-tube running Glucerna 1.2 at 60 ml/hr. Pt has yun cath and empty urine bag at this time. Keep bed in lock with low and elevated head of bed for secure airway. Call light within reach, will continue to monitor.
[2019-12-25 08:00] VITALS: BP 115/57
[2019-12-25] MEDS: ASPIRIN EC 81 MG TABLET.DR PO SCH (08:59)
[2019-12-25] MEDS: MULTIVIT W/MINERALS 1 TAB TABLET GT SCH (08:59)
[2019-12-25] MEDS: PANTOPRAZOLE 40 MG VIAL IV SCH (08:59)
[2019-12-25] MEDS: TICAGRELOR 90 MG TABLET PO SCH ×2 (08:59→17:02)
[2019-12-25] MEDS: FLUCONAZOLE (100 MG) 100 MG TABLET PO SCH (08:59)
[2019-12-25] MEDS: LINEZOLID 600 MG TABLET PO SCH ×2 (08:59→22:23)
[2019-12-25] MEDS: AMIODARONE HCL 200 MG TABLET GT SCH (09:00)
[2019-12-25] MEDS: FERROUS SULFATE (325 MG) 325 MG/TAB TABLET GT SCH (09:00)
[2019-12-25] MEDS: PROSOURCE / PROSTAT (PYXIS) 30 ML UDC GT SCH ×3 (09:17→16:59)
[2019-12-25] MEDS: DAKINS QUARTER STRENGTH (0.125%) 480 ML BOTTLE TOP SCH (09:17)
[2019-12-25] MEDS: CLOTRIMAZOLE 1% 15 GM TUBE TP SCH ×2 (09:17→17:06)
[2019-12-25] MEDS: MUPIROCIN OINT 2% 22 GM TUBE SCH ×2 (09:17→22:24)
[2019-12-25] MEDS: NYSTATIN TOP POWDER 15 GM BOTTLE TP SCH ×2 (09:18→22:25)
[2019-12-25 16:00] VITALS: BP 125/65
--- NOTE | 2019-12-25 18:50 | NUR ---
MS/RN Closing Note Patient in bed comfortably, does no appears pain or discomfort. Respiration even and unlabored with oxygen at 3LPM. Skin is warm to touch, intact piccline, kept clean/dry, no adverse reaction observed from ATB IV therapy, Pt is on Feldman and 500 cc out put. Kept bed in lock with low position, call light within reach, will endorse [facility] shift lead.
[2019-12-25 20:00] VITALS: BP 125/66
[2019-12-25] MEDS: ATORVASTATIN 40 MG TABLET GT SCH (22:23)
[2019-12-25] MEDS ORDERED: INSULIN GLARGINE, 100 UNIT/ML CARTRIDGE SQ ONE (23:39)
[2019-12-26] MEDS: INSULIN GLARGINE, 100 UNIT/ML CARTRIDGE SQ SCH (00:37)
[2019-12-26] MEDS: BLOOD SUGAR DIAGNOSTIC 1 EACH STRIP IN SCH ×3 (00:38→11:35)
[2019-12-26] MEDS: INSULIN REGULAR, HUMAN 100 UNIT/ML 3 ML VIAL SQ PRN ×3 (00:38→11:59)
[2019-12-26] MEDS: GLUCERNA 1.2 1,000 ML BOTTLE GT PRN ×2 (02:36→17:54)
[2019-12-26] MEDS: COLISTIMETHATE SODIUM 75 MG in IV NS 0.9% 50 ML IV SCH ×2 (05:17→17:51)
[2019-12-26 07:17] LABS: CREATININE 0.7 mg/dL (0.6-1.3); MAGNESIUM 2.2 mg/dL (1.8-2.4); PHOSPHORUS 3.8 mg/dL (2.5-4.9); POTASSIUM 4.2 mmol/L (3.5-5.1)
[2019-12-26 07:20] LABS: BASOPHILS # (AUTO) 0.1 /CMM (0.0-0.2); BASOPHILS % (AUTO) 0.3 % (0.0-2.0); HEMATOCRIT 29 % (39-51); HEMOGLOBIN 8.8 g/dL (13.5-17.5); LYMPHOCYTES # (AUTO) 1.6 /CMM (0.8-4.8); LYMPHOCYTES % (AUTO) 9.4 % (20.0-44.0); MEAN CORPUSCULAR HGB CONC 30 g/dl (31.0-36.0); MEAN CORPUSCULAR VOLUME 79 fL (80-96); MONOCYTES # (AUTO) 1.2 /CMM (0.1-1.30); NEUTROPHILS # (AUTO) 14.1 /CMM (1.8-8.9); NEUTROPHILS % (AUTO) 82.3 % (43.0-81.0); PLATELET COUNT (AUTO) 590 /CMM (150-450); WHITE BLOOD COUNT (AUTO) 17.1 K/uL (4.3-11.0)
--- NOTE | 2019-12-26 07:36 | NUR ---
MS RN CLOSING NOTES PATIENT IS OBTUNDED AND NONVERBAL; ABLE TO OPEN EYES. ON 3L NC. NO S/S OF ACUTE RESPIRATORY DISTRESS OR PAIN NOTED. DEVLIN CATH REMAINS PATENT. PATIENT TOLERATING GTUBE FEEDING WITH GLUCERNA 1.2 WELL; NO RESIDUALS NOTED. PICC LINE PRESENT ON RIGHT UPPER ARM, INTACT AND PATENT, NS RUNNING TKO. SAFETY MEASURES IN PLACE AND PATIENT'S NEEDS MET. BED LOCKED, ALARM ON, SIDE RAILS X2, CALL LIGHT WITHIN REACH. WILL ENDORSE TO DAY SHIFT NURSE PLAN OF CARE
--- NOTE | 2019-12-26 07:45 | NUR ---
RECEIVED PATIENT IS OBTUNDED AND NONVERBAL; ABLE TO OPEN EYES. ON 3L NC. NO S/S OF ACUTE RESPIRATORY DISTRESS OR PAIN NOTED. DEVLIN CATH REMAINS PATENT. PATIENT TOLERATING GTUBE FEEDING WITH GLUCERNA 1.2. PICC LINE PRESENT ON RIGHT UPPER ARM, INTACT AND PATENT, NS RUNNING TKO. SAFETY MEASURES IN PLACE AND PATIENT'S NEEDS MET. BED LOCKED, ALARM ON, SIDE RAILS X2, CALL LIGHT WITHIN REACH. WILL
[2019-12-26 08:00] VITALS: BP 120/68
[2019-12-26] MEDS: LINEZOLID 600 MG TABLET PO SCH (09:01)
[2019-12-26] MEDS: MULTIVIT W/MINERALS 1 TAB TABLET GT SCH (09:01)
[2019-12-26] MEDS: PANTOPRAZOLE 40 MG VIAL IV SCH (09:01)
[2019-12-26] MEDS: AMIODARONE HCL 200 MG TABLET GT SCH (09:02)
[2019-12-26] MEDS: ASPIRIN EC 81 MG TABLET.DR PO SCH (09:02)
[2019-12-26] MEDS: FLUCONAZOLE (100 MG) 100 MG TABLET PO SCH (09:02)
[2019-12-26] MEDS: MUPIROCIN OINT 2% 22 GM TUBE SCH (09:03)
[2019-12-26] MEDS: FERROUS SULFATE (325 MG) 325 MG/TAB TABLET GT SCH (09:03)
[2019-12-26] MEDS: TICAGRELOR 90 MG TABLET PO SCH ×2 (09:07→17:45)
[2019-12-26] MEDS: PROSOURCE / PROSTAT (PYXIS) 30 ML UDC GT SCH ×3 (09:09→17:49)
[2019-12-26] MEDS: DAKINS QUARTER STRENGTH (0.125%) 480 ML BOTTLE TOP SCH (09:10)
[2019-12-26] MEDS: CLOTRIMAZOLE 1% 15 GM TUBE TP SCH ×2 (09:10→17:49)
[2019-12-26] MEDS: NYSTATIN TOP POWDER 15 GM BOTTLE TP SCH (09:11)
[2019-12-26] MEDS ORDERED: DEXTROSE 50%-WATER 50 ML DISP.SYRIN IV PRN (13:30)
[2019-12-26] MEDS ORDERED: INSULIN REGULAR, HUMAN 100 UNIT/ML 3 ML VIAL SQ PRN (13:30)
[2019-12-26 16:00] VITALS: BP 114/66
[2019-12-26] MEDS ORDERED: BLOOD SUGAR DIAGNOSTIC 1 EACH STRIP IN SCH (18:00)
--- NOTE | 2019-12-26 19:30 | NUR ---
MS RN NOTES RECEIVED PATIENT IN BED OBTUNDED NON VERBAL OPEN HIS EYES. BREATHING NORMAL NO SOB NOTED, RESPIRATION EVEN NON LABORED. CONTINUES ON 3LNC SATURATING 97%. NO S/S OF PAINOR DISTRESS NOTED. RAFAELA PICC LINE PATENT INTACT. GTF TOLERATING WELL NO RESIDUAL NOTED. F/C INTACT URINE DARNING WELL TO GRAVITY. PATIENT TO BE DISCHARGE TONIGHT. SAFETY MEASURES IN PLACE, BED IN LOW AND LOCKED POSITION. CALL LIGHT WITHIN REACH. WILL CONT TO MONITOR.
--- NOTE | 2019-12-26 19:48 | NUR ---
MS RN NOTE PATIENT IN BED OBTUNDED NON VERBAL NO S/S OF DISTRESS NOTED. NO SOB BREATHING NORMAL. EMT AT BED SIDE REPORT GIVEN TO EMT. DISCHARGE PACKET GIVEN TO EMT. EXIT CARE PROVIDED. PATIENT IS DISCHARGING TO [facility]. PATIENT DISCHARGE IN STABLE CONDITION. Addendum: 12/26/19 at 2109 by ZELALEM OLSON RN ERROR IN CHARTING. PATIENT DISCHARGED AT 2047 NOT 1947.
--- NOTE | 2019-12-26 20:11 | NUR ---
MS/RN CLOSING NOTES PATIENT IS ON BED. PATIENT IS OBTUNDED AND NONVERBAL; ABLE TO OPEN EYES. ON 3L NC. NO S/S OF ACUTE RESPIRATORY DISTRESS OR PAIN NOTED. DEVLIN CATH REMAINS PATENT. PATIENT TOLERATING GTUBE FEEDING WITH GLUCERNA 1.2. PICC LINE PRESENT ON RIGHT UPPER ARM, INTACT AND PATENT. SEEN AND EXAMINED BY MD WITH ORDERS MADE AND CARRIED OUT. ALL DUE MEDICATION WAS GIVEN. SAFETY MEASURES IN PLACE AND PATIENT'S NEEDS MET.PATIENT IS FOR DISCHARGED TODAY. BED LOCKED, ALARM ON, SIDE RAILS X2, CALL LIGHT WITHIN REACH. WILL ENDORSED TO COUNTY SUPERINTENDENT OF SCHOOLS FOR ADRIANA
--- NOTE | 2019-12-26 20:49 | NUR ---
RN NOTE CALLED PATIENT'S DAUGHTER TALKED TO ODILIA AWARE THAT PATIENT DISCHARGE TO [facility] IN STABLE CONDITION.
[2019-12-26] MEDS ORDERED: INSULIN GLARGINE, 100 UNIT/ML CARTRIDGE SQ SCH (22:00)
== END 2019-12-26 20:50 | DRG 853 ==
LOC: ER 09:18 → TELE1 12:58 → TELE-TD 14:52 → MEDSG1 12-14 09:17 → TELE1 12-14 09:18 → MED 12-14 13:57 → MEDSG1 12-22 18:46 → TELE-TD 12-22 19:07 → TELE1 12-22 23:53 → TELE 12-23 08:03 → MED 12-23 08:18
PROVIDERS: ATTEND Student in an Organized Health Care Education/Training Program
PROC: 0QB10ZZ Excision of Sacrum, Open Approach (ICD-10-PCS; principal; 2019-12-15)
PROC: B548ZZA Ultrasonography of Superior Vena Cava, Guidance (ICD-10-PCS; 2019-12-19)
PROC: 02HV33Z Insertion of Infusion Device into Superior Vena Cava, Percutaneous Approach (ICD-10-PCS; 2019-12-19)
PROC: 0JBQ0ZZ Excision of Right Foot Subcutaneous Tissue and Fascia, Open Approach (ICD-10-PCS; 2019-12-20)
PROC: 0HXMXZZ Transfer Right Foot Skin, External Approach (ICD-10-PCS; 2019-12-20)
PROC: 0QBK0ZZ Excision of Left Fibula, Open Approach (ICD-10-PCS; 2019-12-20)
DX: A41.9 Sepsis, unspecified organism (principal); L89.513 Pressure ulcer of right ankle, stage 3; L89.154 Pressure ulcer of sacral region, stage 4; L89.524 Pressure ulcer of left ankle, stage 4; L89.893 Pressure ulcer of other site, stage 3; J18.9 Pneumonia, unspecified organism; E43 Unspecified severe protein-calorie malnutrition; J96.21 Acute and chronic respiratory failure with hypoxia; I21.3 ST elevation (STEMI) myocardial infarction of unspecified site; G82.50 Quadriplegia, unspecified; G93.1 Anoxic brain damage, not elsewhere classified; N39.0 Urinary tract infection, site not specified; G93.40 Encephalopathy, unspecified; E22.2 Syndrome of inappropriate secretion of antidiuretic hormone; M86.18 Other acute osteomyelitis, other site; Z16.24 Resistance to multiple antibiotics; L97.329 Non-pressure chronic ulcer of left ankle with unspecified severity; L97.319 Non-pressure chronic ulcer of right ankle with unspecified severity; E87.0 Hyperosmolality and hypernatremia; R65.20 Severe sepsis without septic shock; Z93.1 Gastrostomy status; Z87.820 Personal history of traumatic brain injury; R13.10 Dysphagia, unspecified; I25.2 Old myocardial infarction; Z86.74 Personal history of sudden cardiac arrest; Z95.5 Presence of coronary angioplasty implant and graft; Z79.4 Long term (current) use of insulin; Z79.02 Long term (current) use of antithrombotics/antiplatelets; Z74.01 Bed confinement status; E11.51 Type 2 diabetes mellitus with diabetic peripheral angiopathy without gangrene; E11.621 Type 2 diabetes mellitus with foot ulcer; E87.5 Hyperkalemia; I25.10 Atherosclerotic heart disease of native coronary artery without angina pectoris; D63.8 Anemia in other chronic diseases classified elsewhere; D47.3 Essential (hemorrhagic) thrombocythemia; Z93.0 Tracheostomy status; B96.89 Other specified bacterial agents as the cause of diseases classified elsewhere; E11.69 Type 2 diabetes mellitus with other specified complication; L84 Corns and callosities; Z74.09 Other reduced mobility; M77.30 Calcaneal spur, unspecified foot; E86.1 Hypovolemia
CPT/HCPCS: 36415; 36569; 36600; 71045-TC; 73610-TC; 80048-TC; 80061-TC; 80076-TC; 80202-TC; 81000-TC; 82272-TC; 82728-TC; 82803-TC; 82962-TC; 83540-TC; 83605-TC; 83735-TC; 83880; 83935-TC; 84100-TC; 84300-TC; 84443-TC; 84484-TC; 84550-TC; 85025-TC; 85730-TC; 86850-TC; 87040-TC; 87070-TC; 87081-TC; 87086-TC; 87186-TC; 88304-TC; 88312-TC; 93307-TC; A4216; A4217; A6209; A6253; A6403; C1751; C9113; G0378; J0610; J0690; J0770; J1650; J1815; J2250; J2405; J2543; J2704; J2765; J3010; J3370; J3475; J3490; J7030; J7040; J7050; J7060; U0003-CS